=== PATIENT | female | born 1965 | race Caucasian/White ===

== ENCOUNTER 2016-12-18 08:08 | Emergency (ER) | payer MEDICARE ==
[2016-03-10 10:07] VITALS: BMI 18.6
[~2016-12-18 08:08] MED LIST: ADDERALL 10 MG10 MG PO; AMOXICILLIN500 M1 PO; ASPIRIN81 MG PO; BACTRIM 400-801 TAB PO; BAYER CHEWABLE81 MG PO; BETADINE TP; BIAXIN 500 MG500 MG PO; BUSPAR 15 MG TA15 MG PO; CALMOSEPTINE OI71 GM TOPICAL; CARAFATE1 G PO; CATAPRES0.1 MG PO; CATAPRES0.2 MG PO; COLACE100 MG PO; DURAGESIC1 PATCH .1 TRANSDERM; ELIQUIS5 MG PO; FAMOTIDINE10 MG PO; FLORAJEN3 CAPS460 MG PO; HYDROCODONE-APA1 TAB PO; IBUPROFEN400 MG PO; K-DUR20 MEQ PO; LASIX40 MG PO; LATUDA40 MG PO; LEXAPRO10 MG PO; LIPITOR10 MG PO; LISINOPRIL-HCTZ1 T11 PO; LISINOPRIL-HCTZ1 TA2 PO; LOVENOX40 MG/0.4 SC; MIRALAX17 GM PO; MULTIPLE VITAMI1 TA1 PO; NEURONTIN 300300 MG PO; NORVASC10 MG PO; PERCOCET 10/3251 TA1 PO; PHENERGAN25 M1 PO; PLAVIX75 MG PO; PRAVACHOL40 MG PO; PROTONIX40 MG PO; PROZAC10 MG PO; RIFADIN300 MG PO; SANTYL30 GM TOPICAL; THERAGRAN M [BK1 TAB PO; VANCOMYCIN 1 GM/1 G1 IV; VITAMIN C250 MG PO; XANAX0.25 MG PO; XANAX1 MG PO; XANAX2 MG PO; [UNRECOGNIZED DRUG - OTHER] IV
[2016-12-18 08:42] LABS: BASOPHILS 0.2 % (0.0-2.0); EOSINOPHILS 0.6 % (0-7); HEMATOCRIT 43.8 % (36.0-48.0); HEMOGLOBIN 14.4 g/dL (12-16); IMMATURE GRANULOCYTES 0.1 % (0-5); LYMPHOCYTES 12.4 % (15-50); MCH 30.8 pg (26.0-34.0); MCHC 32.9 g/dL (31.0-37.0); MCV 93.6 fL (80.0-100.0); MEAN PLATELET VOLUME 10.4 fL (7.4-10.4); MONOCYTES 4.6 % (2-11); NEUTROPHILS 82.1 % (40-80); PLATELET COUNT 243 10x3/uL (130-400); RBC 4.68 10x6/uL (4.00-5.40); RDW 14.6 % (11.5-14.5); WBC 8.3 10x3/uL (4.8-10.8)
[2016-12-18 08:51] LABS: APTT 23.2 SECONDS (22.8-39.4); INR 0.95 (0.85-1.17); PROTIME 12.6 SECONDS (11.6-15.0)
[2016-12-18 08:57] LABS: ALBUMIN 3.5 g/dL (3.4-5.0); ANION GAP 15.1 mmol/L (8-16); BILIRUBIN - TOTAL 0.19 mg/dL (0.2-1.3); CALCIUM 8.7 mg/dL (8.5-10.1); CARBON DIOXIDE 23.5 mmol/L (21.0-32.0); CREATININE - SERUM 0.9 mg/dL (0.6-1.3); POTASSIUM - SERUM 3.6 mmol/L (3.5-5.1); PROTEIN - SERUM 7.5 g/dL (6.4-8.2)
== END 2016-12-18 10:44 | disposition home or self-care (01) ==
LOC: D.ER 08:08
PROVIDERS: Emergency Medicine
DX: R04.0 Epistaxis (principal); I10 Essential (primary) hypertension; Z86.73 Personal history of transient ischemic attack (TIA), and cerebral infarction without residual deficits; I73.9 Peripheral vascular disease, unspecified

== ENCOUNTER 2017-08-29 10:21 | Observation (INO) | payer MEDICARE ==
[~2017-08-29] VITALS: Ht 165.1 cm; Wt 68.5 kg
--- NOTE | ~2017-08-29 | EC ---
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 cm LV Septum (systole) 1.9 cm Left Atria (s.<4.0cm> 4.2 cm LVPW d(<1.2cm) 1.4 cm RV (d.<2.3cm) 2.9 cm LVPW (sytole) 2.1 cm LV diastole(<5.6CM) 5.1 cm MV E-F(>70mm/sec) cm LV systole 2.7 cm LVOT Diameter 2.1 cm MV exc.(>10mm) 1.8 cm Est.ejection fraction (50-75%) % Pericardial Effusion N DOPPLER: LVIT cm/sec A 94.0 cm/sec E 70.0 cm/sec LA cm/sec RVSP 31 mmHg LVOT 96 cm/sec AOP1/2T m/s Asc. Ao 130 cm/sec RVOT 77 cm/sec RA cm/sec PA 107 cm/sec AV Gradient Peak 6.77 mmHg AV Mean 3.52 mmHg AV Area 2.4 cm MV Gradient Peak 5.52 mmHg MV Mean 2.13 mmHg MV Area cm COMMENTS: Hanger: Marcella BARAJAS Edge [place]: 4 Dr. Wilder TAPE# PACS DATE OF SERVICE: 08/29/2017 Transthoracic Echocardiogram FINDINGS: 1. The patient has mild concentric left ventricular hypertrophy. The ejection fraction is 60% to 65%. Inflow characteristics consistent with diastolic dysfunction. There is no regional wall motion abnormalities appreciated. 2. Left atrium is mildly dilated, but normal function. 3. Aortic valve is structurally normal, functionally normal. ECHOCARDIOGRAM REPORT [id number] PATRICIA VARELA 4. Mitral valve has mild to trace mitral regurgitation, otherwise structurally normal. 5. The tricuspid valve has mild tricuspid regurgitation with normal right ventricular systolic pressures. 6. The pulmonic valve is functionally normal. 7. The right atrium is normal size, normal function. 8. The right ventricle is normal size, normal function. CONCLUSION: This is a normal echocardiogram without any evidence of regional wall motion abnormalities. TRANSINT:[id number] Voice Confirmation ID: [id number] DOCUMENT ID: [id number] ANAND WILDER MD at 1118 CC: [id number] DICTATION DATE: 08/29/17 1534 VEGETABLE INSPECTOR: 08/29/17 1724 DIS IN 08/30/17 [facility] [address] [place] [address]
[2017-08-29 10:59] LABS: EOSINOPHILS 1.8 % (0-7); IMMATURE GRANULOCYTES 0.2 % (0-5); LYMPHOCYTES 33.1 % (15-50); MCH 27.9 pg (26.0-34.0); MCHC 31.7 g/dL (31.0-37.0); MEAN PLATELET VOLUME 10.5 fL (7.4-10.4); MONOCYTES 11.8 % (2-11); NEUTROPHILS 52.1 % (40-80); PLATELET COUNT 247 10x3/uL (130-400); RBC 4.66 10x6/uL (4.00-5.40); RDW 17.4 % (11.5-14.5); WBC 4.9 10x3/uL (4.8-10.8)
[2017-08-29 11:19] LABS: ALBUMIN 3.5 g/dL (3.4-5.0); ALKALINE PHOSPHATASE 146 U/L (46-116); ALT (SGPT) 15 U/L (10-68); CALC OSMOLALITY 276 mosm/kg (275-300); CALCIUM 9.2 mg/dL (8.5-10.1); CARBON DIOXIDE 26.5 mmol/L (21.0-32.0); CHLORIDE - SERUM 104 mmol/L (98-107); CREATININE - SERUM 0.9 mg/dL (0.6-1.3); GLUCOSE 110 mg/dL (74-106); POTASSIUM - SERUM 4.5 mmol/L (3.5-5.1); PROTEIN - SERUM 7.5 g/dL (6.4-8.2); SODIUM 139 mmol/L (136-145); UREA NITROGEN 8 mg/dL (7-18); eGFR NON AFRICAN AMERICAN 70 mL/min (90-120)
[2017-08-29 11:29] LABS: BILIRUBIN - TOTAL 0.09 mg/dL (0.2-1.3)
[2017-08-29 11:30] LABS: CHOL - HDL RATIO 4.1 ratio (2.3-4.1); CHOLESTEROL, TOTAL 218 mg/dL (0-200); CKMB 22.1 U/L (0.0-3.6); CREATINE KINASE 167 UL (21-215); HDL CHOLESTEROL 53 mg/dL (32-96); LDL CHOLESTEROL 141 mg/dL (0-100); LDL-HDL RATIO 2.7 ratio (1.5-3.5); TRIGLYCERIDE 123 mg/dL (30-200)
[2017-08-29 11:32] LABS: TROPONIN-I < 0.017 ng/mL (0.000-0.060)
[2017-08-29] MEDS ORDERED: NEURONTIN600 MG PO (14:40)
[2017-08-29] MEDS ORDERED: AMBIEN5 MG PO (14:41)
[2017-08-29] MEDS ORDERED: CYCLOBENZAPRINE10 MG PO ×2 (14:42→14:43)
[2017-08-29 14:47] VITALS: BP 167/120; BMI 25.0
[2017-08-29 16:11] VITALS: BP 131/87
[2017-08-29 16:40] LABS: CKMB 18.2 U/L (0.0-3.6); CREATINE KINASE 158 UL (21-215)
[2017-08-29 16:52] LABS: TROPONIN-I < 0.017 ng/mL (0.000-0.060)
[2017-08-29 21:08] VITALS: BP 85/43
[2017-08-29 22:02] LABS: APPEARANCE CLEAR (CLEAR); BILIRUBIN NEGATIVE (NEGATIVE); COLOR YELLOW (YELLOW); GLUCOSE NEGATIVE (NEGATIVE); KETONE NEGATIVE (NEGATIVE); NITRITE NEGATIVE (NEGATIVE); PROTEIN NEGATIVE (NEGATIVE); UROBILINOGEN NORMAL (NORMAL)
[2017-08-29 22:10] LABS: UDS - AMPHET POSITIVE QUAL (NEGATIVE); UDS - BARB NEGATIVE QUAL (NEGATIVE); UDS - BENZO POSITIVE QUAL (NEGATIVE); UDS - COCAINE NEGATIVE QUAL (NEGATIVE); UDS - OPIATE POSITIVE QUAL (NEGATIVE); UDS - PCP NEGATIVE QUAL (NEGATIVE); UDS - THC NEGATIVE QUAL (NEGATIVE)
[2017-08-29 22:44] LABS: CREATINE KINASE 111 UL (21-215)
[2017-08-29 22:47] LABS: TROPONIN-I < 0.017 ng/mL (0.000-0.060)
[2017-08-30 00:48] VITALS: BP 99/51
[2017-08-30 04:21] VITALS: BP 93/46
[2017-08-30 05:36] LABS: BASOPHILS 0.9 % (0-2); EOSINOPHILS 2.2 % (0-7); HEMATOCRIT 39.8 % (36.0-48.0); HEMOGLOBIN 12.2 g/dL (12-16); LYMPHOCYTES 37.7 % (15-50); MCH 27.7 pg (26.0-34.0); MCHC 30.7 g/dL (31.0-37.0); MEAN PLATELET VOLUME 10.4 fL (7.4-10.4); MONOCYTES 10.9 % (2-11); NEUTROPHILS 48.3 % (40-80); PLATELET COUNT 244 10x3/uL (130-400); RBC 4.41 10x6/uL (4.00-5.40); RDW 17.6 % (11.5-14.5); WBC 4.5 10x3/uL (4.8-10.8)
[2017-08-30 05:51] LABS: MCV 90.2 fL (80.0-100.0)
[2017-08-30 06:07] LABS: ALKALINE PHOSPHATASE 123 U/L (46-116); ALT (SGPT) 14 U/L (10-68); BILIRUBIN - TOTAL 0.13 mg/dL (0.2-1.3); CALC OSMOLALITY 281 mosm/kg (275-300); CALCIUM 8.6 mg/dL (8.5-10.1); CARBON DIOXIDE 27.7 mmol/L (21.0-32.0); CHLORIDE - SERUM 107 mmol/L (98-107); CREATININE - SERUM 0.8 mg/dL (0.6-1.3); GLUCOSE 119 mg/dL (74-106); PROTEIN - SERUM 6.6 g/dL (6.4-8.2); SODIUM 142 mmol/L (136-145); UREA NITROGEN 8 mg/dL (7-18); eGFR NON AFRICAN AMERICAN 80 mL/min (90-120)
[2017-08-30 06:16] LABS: POTASSIUM - SERUM 3.7 mmol/L (3.5-5.1)
[2017-08-30 07:57] VITALS: BP 121/64
[2017-08-30 10:54] VITALS: Ht 165.1 cm; Wt 68.5 kg
[2017-08-30 11:45] VITALS: BP 128/78
[2017-08-30] MEDS ORDERED: CATAPRES0.1 MG PO (13:31)
[2017-08-30] MEDS ORDERED: NORMODYNE / TR200 MG PO (13:32)
[2017-08-30] MEDS ORDERED: NITROQUICK0.4 MG SL (13:34)
== END 2017-08-30 14:08 | disposition home or self-care (01) ==
LOC: D.ER 10:21 → D.M2 12:30 → OBSVTIME 14:08 → D.M2 08-30 14:08
PROVIDERS: Emergency Medicine; Family Medicine
DX: R07.9 Chest pain, unspecified (principal); I25.119 Atherosclerotic heart disease of native coronary artery with unspecified angina pectoris; J44.9 Chronic obstructive pulmonary disease, unspecified; I74.09 Other arterial embolism and thrombosis of abdominal aorta; Z86.73 Personal history of transient ischemic attack (TIA), and cerebral infarction without residual deficits; D64.9 Anemia, unspecified; K21.9 Gastro-esophageal reflux disease without esophagitis; F31.9 Bipolar disorder, unspecified; D75.1 Secondary polycythemia; F10.20 Alcohol dependence, uncomplicated; G89.29 Other chronic pain; I10 Essential (primary) hypertension; E78.5 Hyperlipidemia, unspecified; K59.09 Other constipation; Z87.891 Personal history of nicotine dependence; I70.212 Atherosclerosis of native arteries of extremities with intermittent claudication, left leg

== ENCOUNTER 2018-01-11 08:56 | Emergency (ER) | payer MEDICARE ==
[2017-08-30 10:54] VITALS: BMI 25.1
[~2018-01-11 08:56] MED LIST changes: +AMBIEN5 MG PO; +CYCLOBENZAPRINE10 MG PO; +NEURONTIN600 MG PO; +NITROQUICK0.4 MG SL; +NORMODYNE / TR200 MG PO
[2018-01-11 11:51] LABS: UDS - AMPHET NEGATIVE QUAL (NEGATIVE); UDS - BARB NEGATIVE QUAL (NEGATIVE); UDS - BENZO NEGATIVE QUAL (NEGATIVE); UDS - COCAINE NEGATIVE QUAL (NEGATIVE); UDS - OPIATE NEGATIVE QUAL (NEGATIVE); UDS - PCP NEGATIVE QUAL (NEGATIVE); UDS - THC NEGATIVE QUAL (NEGATIVE)
[2018-01-11 13:14] LABS: APPEARANCE CLEAR (CLEAR); BILIRUBIN NEGATIVE (NEGATIVE); COLOR YELLOW (YELLOW); GLUCOSE NEGATIVE (NEGATIVE); KETONE NEGATIVE (NEGATIVE); NITRITE NEGATIVE (NEGATIVE); PROTEIN NEGATIVE (NEGATIVE); UROBILINOGEN NORMAL (NORMAL)
[2018-01-11 13:33] LABS: HEMATOCRIT 39.9 % (36.0-48.0); HEMOGLOBIN 13.1 g/dL (12-16); MCH 28.6 pg (26.0-34.0); MCHC 32.8 g/dL (31.0-37.0); MCV 87.1 fL (80.0-100.0); PLATELET COUNT 258 10x3/uL (130-400); RBC 4.58 10x6/uL (4.00-5.40); RDW 17.5 % (11.5-14.5); WBC 2.9 10x3/uL (4.8-10.8)
[2018-01-11 13:51] LABS: ALBUMIN 3.3 g/dL (3.4-5.0); ALKALINE PHOSPHATASE 127 U/L (46-116); ALT (SGPT) 16 U/L (10-68); CALC OSMOLALITY 271 mosm/kg (275-300); CALCIUM 8.9 mg/dL (8.5-10.1); CARBON DIOXIDE 28.1 mmol/L (21.0-32.0); CHLORIDE - SERUM 103 mmol/L (98-107); CREATININE - SERUM 0.8 mg/dL (0.6-1.3); GLUCOSE 97 mg/dL (74-106); POTASSIUM - SERUM 3.7 mmol/L (3.5-5.1); PROTEIN - SERUM 7.2 g/dL (6.4-8.2); SODIUM 137 mmol/L (136-145); UREA NITROGEN 6 mg/dL (7-18); eGFR NON AFRICAN AMERICAN 80 mL/min (90-120)
[2018-01-11 14:20] LABS: EOSINOPHILS 3 % (0-7); LYMPHOCYTES 46 % (15-50); MONOCYTES 10 % (2-11); NEUTROPHILS 41 % (40-80); PLATELET ESTIMATE NORMAL
[2018-01-11 14:59] LABS: CREATINE KINASE 125 UL (21-215)
[2018-01-11 15:36] LABS: TROPONIN-I < 0.017 ng/mL (0.000-0.060)
== END 2018-01-11 16:38 | disposition home or self-care (01) ==
LOC: D.ER 08:56
PROVIDERS: Emergency Medicine; Nurse Practitioner Family
DX: R53.1 Weakness (principal); R10.9 Unspecified abdominal pain; F17.200 Nicotine dependence, unspecified, uncomplicated

== ENCOUNTER → 2018-01-25 14:53 | Outpatient (CLI) | payer MEDICARE ==
[2017-08-30 10:54] VITALS: BMI 25.1
== END | disposition home or self-care (01) ==
LOC: D.US 14:53
DX: M79.605 Pain in left leg (principal); M79.604 Pain in right leg; I73.9 Peripheral vascular disease, unspecified

== ENCOUNTER 2018-03-13 05:52 | Outpatient (CLI) | payer MEDICARE ==
[~2018-03-13] VITALS: Ht 165.1 cm; Wt 66.4 kg
--- NOTE | ~2018-03-13 | HEMODYNAMI ---
PATIENT:PATRICIA VARELA MEDICAL RECORD: [id number] : 67 [id number] ADMISSION DATE: 03/13/18 Generatedon:03/13/201810:31 Patient name: PATRICIA VARELA Patient #: [id number] SSN: : 1965 Date of study: 03/13/2018 Page: Of Hemodynamic Procedure Report Patient Data Patient Demographics Procedure consent was obtained First Name: PATRICIA Gender: Female Last Name: NICHOLE : 1965 [facility] Initial: JUS Age: 52 year(s) Patient #: [id number] Race: Unknown Additional ID: [id number] Contact details [address]: [address] [place] [address] State: [place] City: [place] Zip code: [address] Past Medical History Allergies: No known allergies Admission Admission Data Admission Date: 03/13/2018 Admission Time: 5:52 Height (in.): 65 BSA: 1.73 (m2) Height (cm.): 165.1 BMI: 24.3 (kg/m2) Weight (lbs.): 146 Weight (kg.): 66.22 Procedure Procedure Types Cath Procedure Peripheral Cath Diagnostic Procedure Cath Peripheral Abd/Extremity Renal Renal Unilateral Procedure Description Procedure Date Procedure Date: 03/13/2018 Procedure Start Time: 8:28 Procedure Staff Name Function Chas Roberts MD Performing Physician Guillermina Santoyo RT Boom Supervisor Asia Quinn RN Nurse Paola Flores RN Nurse Yuri Finley RT Scrub Procedure Data Cath Procedure Fluoroscopy Diagnostic fluoroscopy Total fluoroscopy Time: time: 14.2 min 14.2 min Diagnostic fluoroscopy Total fluoroscopy dose: dose: 2936 mGy 2936 mGy Contrast Material Contrast Material Type Amount (ml) Isovue 300 180 Entry Location Entry Primary Successful Side Size Upsize Upsize Entry Closure Succes sful Closure Location (Fr) 1 (Fr) 2 (Fr) Remarks Device Remarks Femoral Right 5 Fr artery Femoral artery Diagnostic catheters Device Type Used For End Catheter Placement Merit ULTRA BOLUS FLUSH 5Fr 65CM catheter ([id number]) Angiodynamics SOS OMNI 2 NON B 5FR 65CM catheter ([id number]) Procedure Medications Medication Administration Route Dosage Oxygen etCO2 Nasal cannula 4 l/min Lidocaine 1% added to field 20 Heparin Flush Bag added to field 3 bags (1000units/500ml NS) Versed I.V. 1 mg Fentanyl I.V. 50 mcg Versed I.V. 1 mg Fentanyl I.V. 50 mcg Fentanyl I.V. 50 mcg Versed I.V. 1 mg Fentanyl I.V. 50 mcg Versed I.V. 1 mg Benadryl I.V. 25 mg Benadryl I.V. 25 mg Fentanyl I.V. 50 mcg Fentanyl I.V. 50 mcg Versed I.V. 2 mg Heparin Bolus I.V. 5000 units Nitroglycerin IC/IA 200 mcg Zofran I.V. 4 mg Hemodynamics Rest BSA: 1.73 (m2) O2 Consumption: Estimated: 166.65 (ml/min) O2 Consumption indexed : Estimated:96.33 (ml/min/m) Heart Rate: 67 (bpm) Pressure Samples Time Site Value (mmHg) Purpose Heart Use Rate(bpm) 9:19 LREN 95/46(67) Snapshot 67 Snapshots Pre Cath Intra NCS Post Cath Vital Signs Time Heart Resp SPO2 etCO2 NIBP (mmHg) Rhythm Pain Sedation Rate (ipm) (%) (mmHg) Status Level (bpm) 8:00:34 60 13 98 0 119/74(87) NSR 0 (11) 10(A) , No pain 8:04:27 60 21 99 0 118/75(91) NSR 0 (11) 10(A) , No pain 8:08:29 62 9 98 0 116/70(89) NSR 0 (11) 10(A) , No pain 8:12:24 60 24 96 0 107/68(86) NSR 0 (11) 10(A) , No pain 8:16:22 61 21 96 0 111/65(87) NSR 0 (11) 10(A) , No pain 8:20:23 52 52 100 30.2 106/64(77) SB 0 (11) 9(A) , No pain 8:24:21 58 33 99 38.5 102/65(80) SB 0 (11) 9(A) , No pain 8:28:17 61 18 98 0 108/66(83) NSR 0 (11) 8(A) , No pain 8:32:21 64 33 97 0 102/57(79) NSR 0 (11) 8(A) , No pain 8:36:22 65 31 98 31.7 98/57(83) NSR 0 (11) 8(A) , No pain 8:40:20 66 12 99 30.2 100/62(75) NSR 0 (11) 8(A) , No pain 8:44:19 67 0 96 14.3 97/57(75) NSR 0 (11) 8(A) , No pain 8:48:13 65 9 95 24.1 103/66(81) NSR 0 (11) 8(A) , No pain 8:52:11 64 15 98 0.7 102/61(84) NSR 0 (11) 8(A) , No pain 8:56:12 67 19 100 26.4 99/58(71) NSR 0 (11) 8(A) , No pain 9:00:14 67 9 99 0 93/53(71) NSR 0 (11) 8(A) , No pain 9:04:11 64 7 97 19.6 94/59(74) NSR 0 (11) 8(A) , No pain 9:08:01 68 13 99 33.2 105/77(92) NSR 0 (11) 8(A) , No pain 9:12:01 65 48 99 0 91/59(76) NSR 0 (11) 8(A) , No pain 9:15:52 66 22 100 0 97/65(78) NSR 0 (11) 8(A) , No pain 9:19:41 64 23 100 41.4 106/72(86) NSR 0 (11) 8(A) , No pain 9:23:55 68 10 98 37.7 127/83(105) NSR 0 (11) 8(A) , No pain 9:27:47 67 21 100 0 136/86(112) NSR 0 (11) 8(A) , No pain 9:31:40 71 9 90 0 131/85(101) NSR 0 (11) 8(A) , No pain 9:35:34 72 9 92 0 137/78(112) NSR 0 (11) 8(A) , No pain 9:39:27 74 7 95 15.8 140/88(110) NSR 0 (11) 8(A) , No pain 9:43:23 73 9 98 9 146/82(119) NSR 0 (11) 8(A) , No pain 9:47:16 69 14 99 36.2 134/82(109) NSR 0 (11) 8(A) , No pain 9:51:10 65 7 99 37.7 121/81(100) NSR 0 (11) 8(A) , No pain 9:55:03 66 15 100 26.4 127/74(104) NSR 0 (11) 8(A) , No pain 9:58:57 62 16 96 27.9 122/75(96) NSR 0 (11) 8(A) , No pain 10:02:48 67 8 99 31.7 123/79(101) NSR 0 (11) 8(A) , No pain 10:07:08 61 10 100 37.7 121/71(92) NSR 0 (11) 8(A) , No pain 10:11:22 60 5 100 43.7 120/65(94) NSR 0 (11) 8(A) , No pain 10:15:16 61 8 98 17.3 118/77(93) NSR 0 (11) 8(A) , No pain 10:19:07 65 11 100 36.9 116/78(91) NSR 0 (11) 8(A) , No pain 10:22:59 61 14 98 10.5 124/78(100) NSR 0 (11) 8(A) , No pain 10:27:45 62 11 43.7 115/68(94) NSR 0 (11) 8(A) , No pain Medications Time Medication Route Dose Verified Delivered Reason Notes Effe ctiveness by by 8:19:21 Oxygen etCO2 4l/min Chas Srinivasan Nasal Mark Roberts RN protocol cannula 8:26:53 Lidocaine 1% added 20ml Chas Srinivasan to vial Armando Roberts MD protocol field 8:27:10 Heparin Flush added 3 bags Chas Chas Per Bag to Armando Roberts MD protocol (1000units/500ml field NS) 8:27:22 Versed I.V. 1 mg Chas Paola for Full y awake @ Mark Roberts RN sedation 8:31:30 8:27:33 Fentanyl I.V. 50 mcg Chas Paola for Full y awake @ Mark Roberts RN sedation 8:31:43 8:30:05 Versed I.V. 1 mg Chas Paola for Dozi ng Mark Roberts RN sedation intermittently MD @ 8:52:29 8:31:57 Fentanyl I.V. 50 mcg Chas Paola for Dozi ng Mark Roberts RN sedation intermittently MD @ 8:52:26 8:37:37 Fentanyl I.V. 50 mcg Chas Paola for Dozi ng Mark Roberts RN sedation intermittently MD @ 8:43:48 8:41:46 Versed I.V. 1 mg Chas Paola for Dozi ng Mark Roberts RN sedation intermittently MD @ 8:44:55 8:45:03 Fentanyl I.V. 50 mcg Chas Paola for Most ly Mark Roberts RN sedation sleeping @ 8:52:21 8:57:02 Versed I.V. 1 mg Chsa Paola for Dozi ng Mark Roberts RN sedation intermittently MD @ 9:12:30 9:03:56 Benadryl I.V. 25 mg Chas Paola for Mark Roberts RN sedation 9:13:06 Benadryl I.V. 25 mg Chas Paola for Mark Roberts RN sedation 9:15:10 Fentanyl I.V. 50 mcg Chas Paola for Mark Roberts RN sedation 9:25:15 Fentanyl I.V. 50 mcg Chas Paola for Most ly Mark Roberts RN sedation sleeping @ 9:42:48 9:27:19 Versed I.V. 2 mg Chas Paola for Most ly Mark Roberts RN sedation sleeping @ 9:42:51 9:39:44 Heparin Bolus I.V. 5000 Chas Paola Per units Mark Roberts RN protocol 9:47:46 Nitroglycerin 200 Chas Espinozaine Per IC/IA mcg Mark Roberts RN protocol 10:27:17 Zofran I.V. 4 mg Chas Paola for Mark Roberts RN nausea MD Procedure Log Time Note 7:29:15 Patient Height : 65 inches 7:29:20 Patient Weight : 146 lbs 7:29:54 Use device set IR Diagnostic 7:46:56 DOC .035 wire (G04142) opened to sterile field. 7:46:57 TUBING Contrast Injection High Pressure (WVC689A) opened to sterile field. 7:46:59 Micropuncture VSI 4FR kit opened to sterile field. 7:47:00 SHEATH 5FR [place] (DJZ802) opened to sterile field. 7:47:01 Tegaderm 4 x 4 (1626W) opened to sterile field. 7:47:02 Sterile Angiographic Pack opened to sterile field. 7:47:03 Bag Decanter (2002S) opened to sterile field. 7:47:04 ACIST Manifold (98003) opened to sterile field. 7:47:05 ACIST Hand Control (87397) opened to sterile field. 7:47:06 ACIST Syringe (11819) opened to sterile field. 7:48:05 Time tracking: Regular hours (M-F 7:00 - 5:00) 7:48:13 - 7:48:33 Plan of Care:Hemodynamics will remain stable., Cardiac rhythm will remain stable., Comfort level will be maintained., Respiratory function will remain adequate., Patient/ family verbilizes understanding of procedure., Procedure tolerated without complication., Recovers from procedure without complications.. 7:48:41 Patient received from Outpatients to IR Alert and oriented. Tansferred to table in Supine position. 7:48:48 Signed procedure consent form obtained from patient. 7:48:54 H&P Date Dictated: 03/13/2018 Within 30 days and on chart.. 7:48:59 - 7:49:06 Pre-procedure instructions explained to patient. 7:49:07 Pre-op teaching completed and patient verbalized understanding. 7:49:17 Family unavailable. 7:49:20 Patient NPO since Midnight. 7:49:39 Patient allergic to No known allergies 7:50:05 Is patient on blood thinner?Yes 7:50:11 ACC The patient was administered the following blood thiners within the last 24 hours: ACCPlavix 7:50:16 Patient diabetic? No. 7:50:19 - 7:50:22 ----Pre-sedation anethsthesia assessment.---- 7:50:33 Previous problem with sedation/anesthesia? No ? 7:50:36 Snore? Yes 7:50:39 Sleep apnea? No 7:50:42 Deviated septum? No 7:50:44 Opens mouth fully? Yes 7:50:46 Sticks out tongue? Yes 7:50:56 Airway obstruction? No but has cad 7:51:02 Dentures? No ? 7:51:06 - 7:51:11 Pre procedure: right dorsailis pedis pulse Doppler 7:51:17 Pre procedure: right posterior tibial pulse Doppler 7:51:35 IV patent on arrival in left forearm with D5/.45%NaCl at KVO. 7:51:42 Right groin area was prepped with chlora-prep and draped in sterile fashion 7:51:44 - 7:59:43 Vital chart was started 8:04:32 Cook ALEIDA 1 6FR. Guide sheath opened to sterile field. 8:05:10 GLIDE CATHETER 5FR COBRA 65cm (CG502) opened to sterile field. 8:16:56 ECG and BP/O2 sat monitors applied to patient. 8:16:57 Baseline sample Acquired. 8:17:02 Full Disclosure recording started 8:17:06 - 8:19:21 Oxygen 4l/min etCO2 Nasal cannula was administered by Paola Flores RN; Per protocol; 8:21:54 GLIDE WIRE .035 180CM STRAIGHT (OX8050) opened to sterile field. 8:22:35 TORQUE DEVICE PLASTIC .038 ( TD01) opened to sterile field. 8:26:53 Lidocaine 1% 20ml vial added to field was administered by Chas Roberts MD; Per protocol; 8:26:55 Physician arrived 8:27:10 Heparin Flush Bag (1000units/500ml NS) 3 bags added to field was administered by Chas Roberts MD; Per protocol; 8:27:22 Versed 1 mg I.V. was administered by Paola Flores RN; for sedation; 8:27:31 --------ALL STOP TIME OUT------ 8:27:33 Fentanyl 50 mcg I.V. was administered by Paola Flores RN; for sedation; 8:27:37 Final Timeout: patient, procedure, and site verified with staff and physician. All members of the team are in agreement. 8:28:24 Procedure started. 8:28:36 Local anesthetic to right femoral artery with Lidocaine 1% by Chas Roberts MD.INITIAL ACCESS ONLY 8:28:49 Arterial access obtained using ultrasound guidance. 8:30:05 Versed 1 mg I.V. was administered by Paola Flores RN; for sedation; 8:31:30 Effectiveness of Versed delivered @ 8:27:22 is: Fully awake 8:31:43 Effectiveness of Fentanyl delivered @ 8:27:33 is: Fully awake 8:31:57 Fentanyl 50 mcg I.V. was administered by Paola Flores RN; for sedation; 8:33:07 A 5 Fr sheath was inserted into the Right Femoral artery 8:35:49 GLIDE CATHETER 5FR ANGLED 65cm (CG507) opened to sterile field. 8:37:21 Angiography was performed. 8:37:37 Fentanyl 50 mcg I.V. was administered by Paola Flores RN; for sedation; 8:41:46 Versed 1 mg I.V. was administered by Paola Flores RN; for sedation; 8:43:48 Effectiveness of Fentanyl delivered @ 8:37:37 is: Dozing intermittently 8:43:56 Left groin area was prepped with chlora-prep and draped in sterile fashion 8:44:20 Local anesthetic to left femerol artery with Lidocaine 1% by Chas Roberts MD.ADDITIONAL ACCESS 8:44:55 Effectiveness of Versed delivered @ 8:41:46 is: Dozing intermittently 8:45:03 Fentanyl 50 mcg I.V. was administered by Paola Flores RN; for sedation; 8:47:44 SHEATH 5FR [place] (ICZ632) opened to sterile field. 8:52:21 Effectiveness of Fentanyl delivered @ 8:45:03 is: Mostly sleeping 8:52:26 Effectiveness of Fentanyl delivered @ 8:31:57 is: Dozing intermittently 8:52:29 Effectiveness of Versed delivered @ 8:30:05 is: Dozing intermittently 8:52:36 A [employer] ULTRA BOLUS FLUSH 5Fr 65CM catheter ([id number]) was advanced over the wire and used for . 8:57:02 Versed 1 mg I.V. was administered by Paola Flores RN; for sedation; 8:58:39 A Angiodynamics SOS OMNI 2 NON B 5FR 65CM catheter ([id number]) was advanced over the wire and used for . 9:03:56 Benadryl 25 mg I.V. was administered by Paola Flores RN; for sedation; 9:04:49 PATIENT WAKING UP FREQUENTLY AND ANXIOUS BENADRYL TO HELP ALONG WITH SEDATION MEDS TO HELP RELAX PATIENT 9:12:30 Effectiveness of Versed delivered @ 8:57:02 is: Dozing intermittently 9:13:06 Benadryl 25 mg I.V. was administered by Paola Flores RN; for sedation; 9:14:41 Magiure 180 wire (E39582) opened to sterile field. 9:15:10 Fentanyl 50 mcg I.V. was administered by Paola Flores RN; for sedation; 9:17:18 Zero performed for pressure channel P1 9:17:50 Zero performed for pressure channel P1 9:18:57 Zero performed for pressure channel P1 9:24:47 Zero performed for pressure channel P1 9:25:15 Fentanyl 50 mcg I.V. was administered by Paola Flores RN; for sedation; 9:27:19 Versed 2 mg I.V. was administered by Paola Flores RN; for sedation; 9:39:29 NITINOL .018 2cm 300cm wire ([id number]) opened to sterile field. 9:39:44 Heparin Bolus 5000 units I.V. was administered by Paola Flores RN; Per protocol; 9:42:48 Effectiveness of Fentanyl delivered @ 9:25:15 is: Mostly sleeping 9:42:51 Effectiveness of Versed delivered @ 9:27:19 is: Mostly sleeping 9:47:46 Nitroglycerin IC/IA 200 mcg was administered by Paola Flores RN; Pe r protocol; 9:47:50 INFLATOR BasixTOUCH (RC9879) opened to sterile field. 9:51:48 Inflate balloon Inflation number: 1 A [place] Plus 4 x 2 x 130 Balloon ([id number]) was prepped and advanced across the Undefined1, then inflated 9:59:37 SHEATH 6FR [place] (JWH040) opened to sterile field. 10:01:57 A sheath was inserted into the Femoral artery 10:02:55 Procedure ended.(Physican Out) 10:03:05 Fluoroscopy time 14.20 minutes. 10:03:16 Flurop Dose total: 2936 10:03:16 Fluoroscopy dose: 2936 mGy 10:03:25 Contrast amount:Isovue 300 180ml. 10:03:34 Procedure and supply charges have been captured, reviewed, submitted an d are correct. 10:06:40 Report given to Outpatients. 10:27:17 Zofran 4 mg I.V. was administered by Paola Flores RN; for nausea; 10:29:24 Insertion/operative site no bleeding no hematoma. 10:29:45 Post-op/insertion site Right Femoral artery dressed using a 4 x 4 and Tegaderm. 10:29:50 Post right femoral artery:stable 10:29:55 Post procedure instruction explained to patient.Patient verbalizes understanding. 10:29:58 Post Procedure Pulses reassessed and unchanged 10:30:14 Patient transfered to Outpatients with Stretcher. 10:31:00 Vital chart was stopped Intervention Summary Intervention Notes Time ActionType Lesion and Equipment Used Action# Pressure Duration Attributes 9:51:48 Inflate Undefined1 [place] Plus 4 1 0 00:00 balloon x 2 x 130 Balloon ([id number]) Device Usage Item Name Manufacture Quantity Catalog Number Hospital Part Current M inimal Lot# / Charge Number Stock Stock Serial# Code DOC .035 wire [employer] 1 [id number] 5 ([id number]) TUBING [facility] 1 [id number] 945259 201597 613858 5 Contrast Injection High Pressure (YSJ502N) Micropuncture VSI VASCULAR 1 7266V 317439 787267 5 VSI 4FR kit SOLUTIONS SHEATH 5FR Terumo 2 KAM016 237582 011207 799885 4 0 [place] (URM184) Tegaderm 4 x 4 3M 1 1626W 017144 032472 993171 5 (1626W) Sterile Cardinal 1 [id number] 307967 737410 5 Angiographic Health Pack Bag Decanter Microtek 1 915932 93039 749109 5 () Medical Inc. ACIST Manifold Acist Medical 1 30142 274264 160100 503203 5 (14228) Systems Inc ACIST Hand Acist Medical 1 43049 773715 638171 920540 5 Control Systems Inc (16162) ACIST Syringe Acist Medical 1 94171 743520 636768 131641 2 0 (58440) Systems Inc Cook ALEIDA 1 Cook Medical 1 G68734 243068 023653 5 [id number] 6FR. Guide sheath GLIDE CATHETER Terumo 1 CG502 852774 393560 5 5FR COBRA 65cm (CG502) GLIDE WIRE Terumo 1 GB2459 530932 999372 5 .035 180CM STRAIGHT (TO6267) TORQUE DEVICE [place] 1 TD01 922743 173951 101537 5 PLASTIC .038 ( Scientific TD01) GLIDE CATHETER Terumo 1 CG507 093342 366209 5 5FR ANGLED 65cm (CG507) [employer] ULTRA [employer] 1 [id number] 171300 693956 5 BOLUS FLUSH 5Fr 65CM catheter ([id number]) Angiodynamics Angiodynamics 1 [id number] 002638 10437 438250 5 SOS OMNI 2 NON B 5FR 65CM catheter (67963443) Maguire 180 wire [employer] 1 H47037 405727 347250 3605319 5 8447576 (N61206) NITINOL .018 Medtronic 1 I944574 005476 290785 5 2cm 300cm wire (E611666) INFLATOR [employer] 1 KH8440 777959 597355 521408 5 BasixTOUCH (KU0508) [place] Plus 4 Medtronic 1 [id number] 716285 628849 505335 5 [id number] x 2 x 130 Balloon ([id number]) SHEATH 6FR Terumo 1 HPD168 636997 668726 286598 4 0 [place] (GCQ985) Signature Audit [place] Stage Time Signature Unsigned Intra-Procedure 03/13/2018 Yuri 10:30:54 AM [place] RT (R) (CV) [facility] [address] [facility] [place] [address]
[2018-03-13 06:13] LABS: BASOPHILS 0.9 % (0-2); EOSINOPHILS 1.9 % (0-7); HEMOGLOBIN 13.1 g/dL (12-16); LYMPHOCYTES 70.1 % (15-50); MCH 27.6 pg (26.0-34.0); MCV 86.3 fL (80.0-100.0); MEAN PLATELET VOLUME 10.1 fL (7.4-10.4); MONOCYTES 7.2 % (2-11); NEUTROPHILS 19.9 % (40-80); PLATELET COUNT 218 10x3/uL (130-400); RBC 4.75 10x6/uL (4.00-5.40); RDW 16.4 % (11.5-14.5); WBC 4.3 10x3/uL (4.8-10.8)
[2018-03-13 06:23] LABS: INR 0.98 (0.85-1.17); PROTIME 12.6 SECONDS (11.6-15.0)
[2018-03-13 06:32] LABS: CALC OSMOLALITY 272 mosm/kg (275-300); CARBON DIOXIDE 23.4 mmol/L (21.0-32.0); CHLORIDE - SERUM 103 mmol/L (98-107); CREATININE - SERUM 0.8 mg/dL (0.6-1.3); GLUCOSE 87 mg/dL (74-106); POTASSIUM - SERUM 3.8 mmol/L (3.5-5.1); SODIUM 138 mmol/L (136-145); UREA NITROGEN 8 mg/dL (7-18); eGFR NON AFRICAN AMERICAN 80 mL/min (90-120)
[2018-03-13 07:05] VITALS: Ht 165.1 cm; Wt 66.4 kg
[2018-03-13] MEDS ORDERED: LYRICA50 MG PO (07:15)
[2018-03-13] MEDS ORDERED: PHENERGAN25 M1 PO (07:17)
== END 2018-03-13 16:36 | disposition home or self-care (01) ==
LOC: D.SP 05:52 → D.RAD 08:00 → D.SP 16:36
PROVIDERS: General Practice
DX: I70.1 Atherosclerosis of renal artery (principal); I35.0 Nonrheumatic aortic (valve) stenosis; I77.3 Arterial fibromuscular dysplasia; Z01.812 Encounter for preprocedural laboratory examination

== ENCOUNTER → 2018-06-19 12:13 | Outpatient (CLI) | payer MEDICARE ==
[2018-03-13 07:05] VITALS: BMI 24.3
[~2018-06-19 12:13] MED LIST changes: +LYRICA50 MG PO
== END | disposition home or self-care (01) ==
LOC: D.CT 11:30
DX: R10.9 Unspecified abdominal pain (principal)

== ENCOUNTER → 2018-07-25 11:34 | Outpatient (CLI) | payer MEDICARE ==
[2018-03-13 07:05] VITALS: BMI 24.3
== END | disposition home or self-care (01) ==
LOC: D.CT 11:34
DX: M79.605 Pain in left leg (principal); M79.604 Pain in right leg

== ENCOUNTER 2018-08-07 05:57 | Outpatient (CLI) | payer MEDICARE ==
[~2018-08-07] VITALS: Ht 165.1 cm; Wt 64.5 kg
--- NOTE | ~2018-08-07 | HEMODYNAMI ---
PATIENT:PATRICIA VARELA MEDICAL RECORD: [id number] : 67 LOCATION:[facility] ADMISSION DATE: 08/07/18 Generatedon:08/07/201810:38 Patient name: PATRICIA VARELA Patient #: [id number] SSN: : 1965 Date of study: 08/07/2018 Page: Of Hemodynamic Procedure Report Patient Data Patient Demographics Procedure consent was obtained First Name: PATRICIA Gender: Female Last Name: NICHOLE : 1965 [facility] Initial: JUS Age: 53 year(s) Patient #: [id number] Race: Unknown Additional ID: [id number] Contact details [address]: [address] [place] [address] State: [place] City: [place] Zip code: [address] Past Medical History Allergies: No known allergies Admission Admission Data Admission Date: 08/07/2018 Admission Time: 5:57 Procedure Procedure Types Cath Procedure Peripheral Cath Diagnostic Procedure Abd/Extremity Extremities Procedure Description Procedure Date Procedure Date: 08/07/2018 Procedure Start Time: 8:40 Procedure Staff Name Function Chas Roberts MD Performing Physician Yuri Finley RT Monitor Ayla Quinn RN Nurse Procedure Data Cath Procedure Fluoroscopy Diagnostic fluoroscopy Total fluoroscopy Time: time: 16.4 min 16.4 min Diagnostic fluoroscopy Total fluoroscopy dose: dose: 1498 mGy 1498 mGy Contrast Material Contrast Material Type Amount (ml) Isovue 300 135 Entry Location Entry Primary Successful Side Size Upsize 1 Upsize Entry Closure Successful Closure Location (Fr) (Fr) 2 (Fr) Remarks Device Remarks Femoral Right 5 Fr 6 Fr Manual artery Mid-Length Compressio n Diagnostic catheters Device Type Used For End Catheter Placement Angiodynamics SOS OMNI 2 Renal NON B 5FR 65CM catheter arteriography with ([id number]) flush -selective Procedure Medications Medication Administration Route Dosage Heparin Flush Bag added to field 3 bags (1000units/500ml NS) Lidocaine 1% added to field 20 Versed I.V. 1 mg Fentanyl I.V. 50 mcg Versed I.V. 1 mg Fentanyl I.V. 50 mcg Heparin Bolus I.V. 5000 units Hemodynamics Rest Heart Rate: 61 (bpm) Snapshots Pre Cath Intra NCS Post Cath Vital Signs Time Heart Resp SPO2 etCO2 NIBP (mmHg) Rhythm Pain Sedation Rate (ipm) (%) (mmHg) Status Level (bpm) 8:10:12 62 37 92 0 114/83(94) NSR 0 (11) 10(A) , No pain 8:15:11 65 13 92 0 Measuring NSR 0 (11) 10(A) , No pain 8:15:42 67 25 96 0 119/65(76) NSR 0 (11) 10(A) , No pain 8:19:56 63 10 100 38.7 102/75(88) NSR 0 (11) 10(A) , No pain 8:24:55 62 37 0 Measuring NSR 0 (11) 10(A) , No pain 8:24:57 63 37 0 101/65(88) NSR 0 (11) 10(A) , No pain 8:29:03 65 15 36.4 109/71(89) NSR 0 (11) 10(A) , No pain 8:33:08 66 11 30.3 108/82(96) NSR 0 (11) 10(A) , No pain 8:37:14 70 11 32.6 110/73(92) NSR 0 (11) 10(A) , No pain 8:41:22 66 30 98 0 105/69(82) NSR 0 (11) 10(A) , No pain 8:45:28 65 23 97 30.3 106/70(87) NSR 0 (11) 8(A) , No pain 8:50:17 63 10 98 9.1 113/80(98) NSR 0 (11) 8(A) , No pain 8:54:24 63 10 98 0 122/71(98) NSR 0 (11) 8(A) , No pain 8:58:34 63 9 99 0.7 117/73(87) NSR 0 (11) 8(A) , No pain 9:02:40 62 9 99 0 108/78(100) NSR 0 (11) 8(A) , No pain 9:06:42 66 9 99 0 123/82(102) NSR 0 (11) 8(A) , No pain 9:10:54 62 10 99 0.7 110/70(88) NSR 0 (11) 8(A) , No pain 9:14:58 61 10 99 0.7 116/75(96) NSR 0 (11) 8(A) , No pain 9:19:08 62 10 99 8.3 119/69(89) NSR 0 (11) 8(A) , No pain 9:23:15 61 10 98 9.8 112/75(92) NSR 0 (11) 8(A) , No pain 9:27:21 61 10 99 9.1 107/71(86) NSR 0 (11) 8(A) , No pain 9:31:25 62 10 100 11.3 118/70(94) NSR 0 (11) 8(A) , No pain 9:35:29 64 10 100 13.6 135/83(117) NSR 0 (11) 8(A) , No pain 9:40:25 71 10 100 12.1 171/108(140) NSR 0 (11) 8(A) , No pain 9:44:50 75 11 100 0 177/115(147) NSR 0 (11) 8(A) , No pain 9:49:08 71 10 100 28.1 165/109(131) NSR 0 (11) 8(A) , No pain 9:53:22 72 11 100 28.8 150/99(127) NSR 0 (11) 8(A) , No pain 9:57:36 67 10 100 22.8 136/87(118) NSR 0 (11) 8(A) , No pain 10:01:46 65 7 100 0 132/87(108) NSR 0 (11) 8(A) , No pain 10:05:58 67 10 100 22 138/82(118) NSR 0 (11) 8(A) , No pain 10:10:10 65 10 100 28.1 137/88(106) NSR 0 (11) 8(A) , No pain 10:14:21 63 9 100 24.3 135/84(105) NSR 0 (11) 8(A) , No pain 10:18:31 62 10 100 28.8 130/86(118) NSR 0 (11) 8(A) , No pain 10:22:39 63 8 100 27.3 140/85(102) NSR 0 (11) 8(A) , No pain 10:26:55 60 10 100 26.6 132/75(107) NSR 0 (11) 8(A) , No pain 10:31:03 60 10 100 28.8 127/86(100) NSR 0 (11) 8(A) , No pain 10:35:09 64 14 100 34.1 137/83(113) NSR 0 (11) 8(A) , No pain Medications Time Medication Route Dose Verified Delivered Reason Notes Effect iveness by by 8:27:42 Heparin Flush added 3 Chas Doherty used for Bag to bags Armando Roberts MD procedure (1000units/500ml field VARGAS NS) 8:27:53 Lidocaine 1% added 20ml Chas Doherty used for to vial Armando Roberts MD procedure field VARGAS 8:44:19 Versed I.V. 1 mg Chas Betancourt for Kai Roberts RN sedation 8:44:30 Fentanyl I.V. 50 Chas Asia for mcg Kai Roberts RN sedation 9:08:27 Versed I.V. 1 mg Chas Asia for Kai Roberts RN sedation 9:08:35 Fentanyl I.V. 50 Chas Asia for mcg Kai Roberts RN sedation 9:24:22 Heparin Bolus I.V. 5000 Chas Asia units Kai Roberts RN, MD Procedure Log Time Note 7:53:48 Yuri Finley RT (R) (CV) sent for patient. Start room use. 7:53:58 Time tracking: Regular hours (M-F 7:00 - 5:00) 7:54:03 Plan of Care:Hemodynamics will remain stable., Cardiac rhythm will remain stable., Comfort level will be maintained., Respiratory function will remain adequate., Patient/ family verbilizes understanding of procedure., Procedure tolerated without complication., Recovers from procedure without complications.. 7:54:10 Patient received from Outpatients to IR Alert and oriented. Tansferred to table in Supine position. 7:54:12 Correct patient and procedure confirmed by team. 7:54:13 Signed procedure consent form obtained from patient. 7:54:14 ECG and BP/O2 sat monitors applied to patient. 7:54:15 Full Disclosure recording started 7:54:16 - 7:54:19 Use device set IR Diagnostic 7:54:21 ACIST Syringe (89337) opened to sterile field. 7:54:22 ACIST Hand Control (02146) opened to sterile field. 7:54:22 ACIST Manifold (75814) opened to sterile field. 7:54:22 Bag Decanter () opened to sterile field. 7:54:23 Sterile Angiographic Pack opened to sterile field. 7:54:23 Tegaderm 4 x 4 (1626W) opened to sterile field. 7:54:30 H&P Date Dictated: 08/07/2018 H&P Addendum completed by physician on day of procedure. (MUST COMPLETE FOR ALL OUTPATIENTS). 7:54:31 Pre-procedure instructions explained to patient. 7:54:31 Pre-op teaching completed and patient verbalized understanding. 7:54:33 Family in waiting room. 7:54:34 Patient NPO since Midnight. 7:54:53 Patient allergic to No known allergies 7:54:58 Is the patient allergic to Iodine/contrast media? No. 7:54:59 Is patient on blood thinner?Yes 7:55:03 ACC The patient was administered the following blood thiners within the last 24 hours: ACCAspirin, ACCPlavix 7:55:05 Patient diabetic? No. 7:55:06 - 7:55:10 ----Pre-sedation anethsthesia assessment.---- 7:55:13 Previous problem with sedation/anesthesia? No ? 7:55:15 Snore? No 7:55:17 Sleep apnea? No 7:55:19 Deviated septum? No 7:55:20 Opens mouth fully? No 7:55:22 Sticks out tongue? No 7:55:23 Airway obstruction? No ? 7:55:26 Dentures? No ? 7:55:31 Pre procedure: right dorsailis pedis pulse 1+ Palpable, but thready & weak; easily obliterated 7:55:35 Pre procedure: left dorsailis pedis pulse Doppler 7:55:48 Pre procedure: right posterior tibial pulse Doppler 7:56:00 Pre procedure: left posterior tibial pulse Doppler 8:08:48 Patient pain scale 0/10 no pain. 8:08:57 IV patent on arrival in left forearm with 0.9% NaCl at [facility]. 8:09:02 Right groin area was prepped with chlora-prep and draped in sterile fashion 8:09:03 Alarms reviewed by R. N. 8:09:04 Sharps counted by scrub and verified by R.N. 8:09:09 Vital chart was started 8:09:10 Baseline sample Acquired. 8:09:16 Rhythm: sinus rhythm 8:27:42 Heparin Flush Bag (1000units/500ml NS) 3 bags added to field was administered by Chas Roberts MD; used for procedure; 8:27:53 Lidocaine 1% 20ml vial added to field was administered by Chas Roberts MD; used for procedure; 8:31:12 Baseline sample Acquired. 8:37:54 Physician arrived 8:37:55 --------ALL STOP TIME OUT------ 8:38:00 Final Timeout: patient, procedure, and site verified with staff and physician. All members of the team are in agreement. 8:38:05 Right groin site verified by team. 8:38:15 Sedation plan: IV Moderate Sedation Medication:Versed, Fentanyl 8:40:06 Procedure started. 8:40:18 Local anesthetic to right femoral artery with Lidocaine 1% by Chas Roberts MD.INITIAL ACCESS ONLY 8:40:23 Access obtained with 4Fr micropunture. 8:40:33 A 5 Fr sheath was inserted into the Right Femoral artery 8:40:39 DOC .035 wire (F39037) opened to sterile field. 8:40:39 TUBING Contrast Injection High Pressure (YDY698D) opened to sterile field. 8:40:39 SHEATH 5FR [place] (XLI444) opened to sterile field. 8:40:40 Micropuncture VSI 4FR kit opened to sterile field. 8:40:40 Angiodynamics Omniflush 5Fr 65cm (88986268) opened to sterile field. 8:40:41 ERNST 260 wire (A29367) opened to sterile field. 8:44:19 Versed 1 mg I.V. was administered by Asia Quinn RN; for sedation; 8:44:30 Fentanyl 50 mcg I.V. was administered by Asia Quinn RN; for sedation ; 8:53:24 GLIDE WIRE ANGLE 180cm (YX0989) opened to sterile field. 8:53:25 TORQUE DEVICE PLASTIC .038 ( TD01) opened to sterile field. 8:56:03 GLIDE CATHETER 5FR ANGLED 65cm (CG507) opened to sterile field. 8:56:14 NITINOL .018 80cm wire (X764008) opened to sterile field. 9:05:47 Cook ALEIDA 1 6FR. Guide sheath opened to sterile field. 9:05:55 Sheath upsized to a 6 Fr Mid-Length. 9:08:27 Versed 1 mg I.V. was administered by Asia Quinn RN; for sedation; 9:08:34 NITINOL .018 2cm 300cm wire (K432065) opened to sterile field. 9:08:35 Fentanyl 50 mcg I.V. was administered by Asia Quinn RN; for sedation ; 9:13:44 A Angiodynamics SOS OMNI 2 NON B 5FR 65CM catheter ([id number]) was advanced over the wire and used for Renal arteriography with flush -selective. 9:24:22 Heparin Bolus 5000 units I.V. was administered by Asia Quinn RN; ; 9:26:05 GLIDE CATHETER 5FR COBRA 65cm (CG502) opened to sterile field. 9:26:56 INFLATOR BasixTOUCH (GK0224) opened to sterile field. 9:40:41 Inflate balloon Inflation number: 1 A Evercross 3 x 2 x 135 Balloon ([id number]) was prepped and advanced across the Proximal Renal, Left, then inflated to 16 SEVERINO for 0:38 (min:sec). 9:55:42 Place stent Inflation Number: 2 A Loma Mini 5 x 18 Stent ([id number]) was prepped and advanced across the Proximal Renal, Left. The stent was deployed at 10 SEVERINO for 0:00 (min:sec). 10:22:42 Procedure ended.(Physican Out) 10::57 Fluoroscopy time 16.40 minutes. 10:23:06 Fluoroscopy dose: 1498 mGy 10:23:06 Flurop Dose total: 1498 10:23:12 Contrast amount:Isovue 300 135ml. 10:26:52 Post-op/insertion site Right Femoral artery dressed using a 4 x 4 and Tegaderm. 10:26:56 Post Procedure Pulses reassessed and unchanged 10:26:57 Post procedure instruction explained to patient.Patient verbalizes understanding. 10:26:58 Procedure and supply charges have been captured, reviewed, submitted an d are correct. 10:29:37 Sheath removed intact; hemostasis achieved with Manual Compression to the Right Femoral artery. 10:38:13 Report given to Outpatients. 10:38:16 Patient transfered to Outpatients with Stretcher. 10:38:46 Vital chart was stopped Intervention Summary Intervention Notes Time ActionType Lesion and Equipment Used Action# Pressure Duration Attributes 9:40:41 Inflate Proximal Evercross 3 x 2 1 16 00:38 balloon Renal, Left x 135 Balloon ([id number]) 9:55:42 [address] stent Proximal Loma Mini 2 10 00:00 Renal, Left 5 x 18 Stent ([id number]) Device Usage Item Name Manufacture Quantity Catalog Number Hospital Part Current Minimal Lot# / Charge Number Stock Stock Serial# Code ACIST Syringe Acist Medical 1 58201 721352 136460 237040 20 (30677) Systems Inc ACIST Hand Acist Medical 1 89725 031890 267774 650337 5 Control (20602) Systems Inc ACIST Manifold Acist Medical 1 75602 890189 664017 559583 5 (77199) Systems Inc Bag Decanter Microtek 1 2001S 796840 82909 708006 5 () Medical Inc. Sterile Cardinal 1 [id number] 058348 623970 5 Angiographic Health Pack Tegaderm 4 x 4 3M 1 1626W 598773 414318 078193 5 (1626W) DOC .035 wire Cook Medical 1 P68437 743924 552163 5 (O82386) TUBING Contrast [facility] Medical 1 WJJ130W 235230 465749 752995 5 [id number] Injection High Pressure (MSA547E) SHEATH 5FR Terumo 1 BIH525 790694 246618 708253 40 [place]rie (GIL151) Micropuncture VSI VASCULAR 1 7266V 354484 198739 5 VSI 4FR kit SOLUTIONS Angiodynamics Angiodynamics 1 10600875 059268 333009 563008 5 Omniflush 5Fr 65cm (42120162) ERNST 260 wire [facility] [employer] 1 S07514 534714 91832 506398 5 (U48154) GLIDE WIRE Terumo 1 FD2045 884534 964408 962941 5 ANGLE 180cm (OG5992) TORQUE DEVICE [place] 1 TD01 043047 252254 234260 5 PLASTIC .038 ( Scientific TD01) GLIDE CATHETER Terumo 1 CG507 624407 736442 5 5FR ANGLED 65cm (CG507) NITINOL .018 Medtronic 1 J038071 098093 619966 5 [id number] 80cm wire (H319378) Cook ALEIDA 1 Cook Medical 1 I04294 906648 891976 5 [id number] 6FR. Guide sheath NITINOL .018 Medtronic 1 R077610 881843 625536 5 2cm 300cm wire (N329775) Angiodynamics Angiodynamics 1 45237457 878828 43366 633137 5 SOS OMNI 2 NON B 5FR 65CM catheter (04478460) GLIDE CATHETER Terumo 1 CG502 026971 332185 5 5FR COBRA 65cm (CG502) INFLATOR [facility] Medical 1 DI2756 805677 553141 178014 5 BasixTOUCH (PN4164) Evercross 3 x 2 Medtronic 1 [id number] 299027 857270 987217 5 N778737 x 135 Balloon ([id number]) Loma Mini Medtronic 1 HWM6-2-83-80 112400 835247 315861 5 P439492 5 x 18 Stent (XXQ8-6-40-80) Signature Audit [place] Stage Time Signature Unsigned Intra-Procedure 08/07/2018 Yuri 10:38:40 AM Tushar RT (R) (CV) Signatures Monitor : Yuri Signature : Tushar RT Date : Time : [address] [place] [address]
[2018-08-07 06:27] LABS: EOSINOPHILS 3.8 % (0-7); HEMATOCRIT 42.3 % (36.0-48.0); LYMPHOCYTES 51.4 % (15-50); MCH 30.3 pg (26.0-34.0); MCHC 33.1 g/dL (31.0-37.0); MCV 91.6 fL (80.0-100.0); MEAN PLATELET VOLUME 10.3 fL (7.4-10.4); MONOCYTES 8.6 % (2-11); NEUTROPHILS 35.2 % (40-80); PLATELET COUNT 223 10x3/uL (130-400); RBC 4.62 10x6/uL (4.00-5.40); RDW 16.7 % (11.5-14.5); WBC 3.2 10x3/uL (4.8-10.8)
[2018-08-07 06:54] LABS: APTT 26.6 SECONDS (22.8-39.4); INR 0.94 (0.85-1.17); PROTIME 12.1 SECONDS (11.6-15.0)
[2018-08-07 07:17] LABS: CALC OSMOLALITY 277 mosm/kg (275-300); CALCIUM 8.7 mg/dL (8.5-10.1); CARBON DIOXIDE 28.3 mmol/L (21.0-32.0); CHLORIDE - SERUM 102 mmol/L (98-107); CREATININE - SERUM 0.8 mg/dL (0.6-1.3); POTASSIUM - SERUM 4.2 mmol/L (3.5-5.1); SODIUM 141 mmol/L (136-145); UREA NITROGEN 8 mg/dL (7-18); eGFR NON AFRICAN AMERICAN 80 mL/min (90-120)
[2018-08-07 07:27] VITALS: BP 99/60; Ht 165.1 cm; Wt 64.5 kg
[2018-08-07 07:45] LABS: GLUCOSE 88 mg/dL (74-106)
== END 2018-08-07 17:08 | disposition home or self-care (01) ==
LOC: D.SP 05:57 → D.RAD 08:00 → D.SP 17:08
PROVIDERS: General Practice
DX: I10 Essential (primary) hypertension (principal); I70.245 Atherosclerosis of native arteries of left leg with ulceration of other part of foot; I70.92 Chronic total occlusion of artery of the extremities; I70.1 Atherosclerosis of renal artery; Z01.812 Encounter for preprocedural laboratory examination

== ENCOUNTER 2018-09-13 11:36 | Emergency (ER) | payer MEDICARE ==
[~2018-09-13] VITALS: Ht 165.1 cm; Wt 63.6 kg
[2018-09-13 11:48] VITALS: Ht 165.1 cm; Wt 63.6 kg
[2018-09-13 12:35] LABS: HEMATOCRIT 36.6 % (36.0-48.0); HEMOGLOBIN 11.8 g/dL (12-16); MCH 27.3 pg (26.0-34.0); MCHC 32.2 g/dL (31.0-37.0); MCV 84.7 fL (80.0-100.0); MEAN PLATELET VOLUME 11.1 fL (7.4-10.4); NEUTROPHILS 86.5 % (40-80); PLATELET COUNT 133 10x3/uL (130-400); RBC 4.32 10x6/uL (4.00-5.40); RDW 16.1 % (11.5-14.5); WBC 8.1 10x3/uL (4.8-10.8)
[2018-09-13 12:40] LABS: ALBUMIN 3.4 g/dL (3.4-5.0); ALKALINE PHOSPHATASE 122 U/L (46-116); ALT (SGPT) 16 U/L (10-68); AMYLASE - SERUM 24 U/L (25-115); BILIRUBIN - TOTAL 0.23 mg/dL (0.2-1.3); CALC OSMOLALITY 277 mosm/kg (275-300); CALCIUM 8.7 mg/dL (8.5-10.1); CARBON DIOXIDE 23.9 mmol/L (21.0-32.0); CHLORIDE - SERUM 102 mmol/L (98-107); GLUCOSE 127 mg/dL (74-106); LIPASE 132 U/L (73-393); POTASSIUM - SERUM 3.9 mmol/L (3.5-5.1); PROTEIN - SERUM 8.1 g/dL (6.4-8.2); SODIUM 139 mmol/L (136-145); TROPONIN-I < 0.017 ng/mL (0.000-0.060); UREA NITROGEN 6 mg/dL (7-18); eGFR NON AFRICAN AMERICAN 62 mL/min (90-120)
[2018-09-13] MEDS ORDERED: MIRALAX17 GM PO (14:17)
[2018-09-13] MEDS ORDERED: ZOFRAN4 MG PO (14:17)
[2018-09-13 14:40] LABS: APPEARANCE CLEAR (CLEAR); COLOR STRAW (YELLOW); GLUCOSE NEGATIVE (NEGATIVE); KETONE NEGATIVE (NEGATIVE); NITRITE NEGATIVE (NEGATIVE); PROTEIN NEGATIVE (NEGATIVE)
[2018-09-13 14:41] LABS: BILIRUBIN NEGATIVE (NEGATIVE); UROBILINOGEN NORMAL (NORMAL)
[2018-09-13 15:17] VITALS: BP 136/74
== END 2018-09-13 15:17 | disposition home or self-care (01) ==
LOC: D.ER 11:36
PROVIDERS: Family Medicine
DX: R10.9 Unspecified abdominal pain (principal); K59.00 Constipation, unspecified

== ENCOUNTER 2019-03-04 11:05 | Day surgery (SDC) | payer MEDICARE ==
[~2019-03-04] VITALS: Ht 165.1 cm; Wt 61.4 kg
[~2019-03-04 11:05] MED LIST changes: +ZOFRAN4 MG PO
[2019-03-04 11:29] LABS: HEMATOCRIT 41.3 % (36.0-48.0); MCHC 33.9 g/dL (31.0-37.0); MCV 91.4 fL (80.0-100.0); MEAN PLATELET VOLUME 10.3 fL (7.4-10.4); PLATELET COUNT 167 10x3/uL (130-400); RBC 4.52 10x6/uL (4.00-5.40); RDW 14.4 % (11.5-14.5); WBC 3.3 10x3/uL (4.8-10.8)
[2019-03-04 11:44] LABS: CALC OSMOLALITY 279 mosm/kg (275-300); CALCIUM 9.1 mg/dL (8.5-10.1); CARBON DIOXIDE 29.1 mmol/L (21.0-32.0); CHLORIDE - SERUM 106 mmol/L (98-107); CREATININE - SERUM 0.8 mg/dL (0.6-1.3); GLUCOSE 81 mg/dL (74-106); POTASSIUM - SERUM 4.2 mmol/L (3.5-5.1); SODIUM 142 mmol/L (136-145); UREA NITROGEN 8 mg/dL (7-18); eGFR NON AFRICAN AMERICAN 80 mL/min (90-120)
[2019-03-04 12:10] VITALS: BP 119/74; Ht 165.1 cm; Wt 61.4 kg
[2019-03-04 13:16] LABS: EOSINOPHILS 2 % (0-7); LYMPHOCYTES 46 % (15-50); MONOCYTES 7 % (2-11); NEUTROPHILS 44 % (40-80); PLATELET ESTIMATE NORMAL
[2019-03-04 13:17] LABS: HYPOCHROMASIA OCC; ROULEAUX OCC
--- NOTE | 2019-03-04 14:26 | NUR ---
1425 RECIEVED A FULL LIQ TRAY
--- NOTE | 2019-03-04 16:35 | OP ---
PATIENT NAME: PATRICIA VARELA MEDICAL RECORD: [id number] :67 LOCATION:[facility] ADMISSION DATE: SURGEON: KIANA DIEGO DO DATE OF OPERATION: 03/04/2019 PROCEDURE: EGD with biopsies. INDICATION FOR PROCEDURE: Nausea, dysphagia, generalized abdominal pain. SCOPE: Olympus video gastroscope. MEDICATIONS: Propofol 80 mg IV per anesthesia. ESTIMATED BLOOD LOSS: Minimal. COMPLICATIONS: None. FINDINGS: Informed consent was given. The patient was made comfortable with the above medication. After reaching an adequate level of sedation by slow IV push, the patient was placed on her left side. The endoscope was advanced under direct visualization through the mouth to the second portion of the duodenum. The entire esophagus appeared normal. At the GE junction, there was evidence of LA class B reflux-induced esophagitis. Biopsies were taken randomly in the midesophagus to rule out the presence of eosinophilic esophagitis and from the GE junction to rule out Gallagher's. The endoscope was advanced beyond the GE junction into the stomach and retroflexed to view the cardia, where small sliding hiatal hernia was present. Throughout the entire stomach, there were patchy areas of erythema, granularity, and some congestion. Appearances were consistent with gastritis. Random cold forceps biopsies were taken to submit for histopathology and to rule out the presence of H. pylori. The endoscope was advanced beyond the pylorus into the duodenum, which appeared normal down to the second portion. Random cold forceps biopsies were taken to submit for histopathology. The endoscope was withdrawn from the patient. The patient tolerated the procedure well and there were no complications. IMPRESSION: 1. LA class B reflux-induced esophagitis. 2. Small sliding hiatal hernia. 3. Gastritis. PLAN AND RECOMMENDATIONS: 1. Discharge home when recovery parameters are met. 2. Follow up biopsy specimen results. 3. Continue current diet. 4. Continue present medications. 5. Omeprazole 40 mg times 60 days. 6. Consider imaging of gallbladder and gastric emptying scan if symptoms return. 7. Proceed with colonoscopy as scheduled. TRANSINT:[id number] Voice Confirmation ID: [id number] DOCUMENT ID: [id number] OPERATIVE REPORT [id number] PATRICIA VARELA KIANA DIEGO DO at 1633 CC: [id number] DICTATION DATE: 03/04/19 1356 PORTABLE PINCH RIVETER: 03/04/19 1615 [facility] 03/04/19 [place] [id number] [place] [id number]
== END 2019-03-04 14:53 | disposition home or self-care (01) ==
LOC: D.OPS 11:05
PROVIDERS: Anesthesiology; ATTEND Internal Medicine Gastroenterology
DX: K21.0 Gastro-esophageal reflux disease with esophagitis (principal); K44.9 Diaphragmatic hernia without obstruction or gangrene; K29.50 Unspecified chronic gastritis without bleeding; Z01.812 Encounter for preprocedural laboratory examination

== ENCOUNTER 2019-04-01 10:54 | Day surgery (SDC) | payer MEDICARE ==
[~2019-04-01] VITALS: Ht 165.1 cm; Wt 65.5 kg
[2019-04-01 11:30] LABS: HEMATOCRIT 44.5 % (36.0-48.0); HEMOGLOBIN 15.8 g/dL (12-16); MCH 32.1 pg (26.0-34.0); MCHC 35.5 g/dL (31.0-37.0); MCV 90.4 fL (80.0-100.0); MEAN PLATELET VOLUME 10.9 fL (7.4-10.4); RBC 4.92 10x6/uL (4.00-5.40); RDW 14.4 % (11.5-14.5); WBC 3.8 10x3/uL (4.8-10.8)
[2019-04-01 11:32] LABS: CALC OSMOLALITY 264 mosm/kg (275-300); CHLORIDE - SERUM 97 mmol/L (98-107); CREATININE - SERUM 0.8 mg/dL (0.6-1.3); GLUCOSE 71 mg/dL (74-106); POTASSIUM - SERUM 3.8 mmol/L (3.5-5.1); SODIUM 135 mmol/L (136-145); UREA NITROGEN 4 mg/dL (7-18); eGFR NON AFRICAN AMERICAN 80 mL/min (90-120)
[2019-04-01 11:38] LABS: INR 0.98 (0.85-1.17); PROTIME 12.5 SECONDS (11.6-15.0)
[2019-04-01 11:49] VITALS: Ht 165.1 cm; Wt 65.5 kg
--- NOTE | 2019-04-01 14:46 | NUR ---
DC INSTRUCTIONS GIVEN TO PT/FAMILY. STATE UNDERSTANDING. DC'D IV CATH FULLY INTACT
--- NOTE | 2019-04-01 15:03 | NUR ---
PT LEFT UNIT VIA WC AT 1500
--- NOTE | 2019-04-02 15:18 | OP ---
PATIENT NAME: PATRICIA VARELA MEDICAL RECORD: [id number] :67 LOCATION:[facility] ADMISSION DATE: SURGEON: KIANA DIEGO DO DATE OF OPERATION: 04/01/2019 PROCEDURE: Colonoscopy with polypectomy. INDICATION FOR PROCEDURE: Family history positive for colon cancer in the patient's father, hematochezia, chronic constipation as well as nausea, and abdominal pain. SCOPE: Olympus video pediatric colonoscope. MEDICATIONS: Propofol 560 mg IV per anesthesia. ESTIMATED BLOOD LOSS: Minimal. COMPLICATIONS: None. FINDINGS: Informed consent was given. The patient was made comfortable with the above medication. After reaching an adequate level of sedation by slow IV push, the patient was placed in the left side. A digital rectal examination was performed and revealed some external hemorrhoids. The endoscope was then advanced under direct visualization through the rectum to the cecum, confirmed by the presence of the appendiceal orifice and the ileocecal valve. The endoscope was withdrawn slowly and the mucosa was carefully examined. The prep quality was good. There were 4 polyps located in the cecum. Three were benign appearing, sessile, and ranged in size from 2-4 mm in diameter. These 3 were removed using a hot forceps in one piece and completely retrieved. The largest of the polyps measured approximately 1 cm in size. It was removed using endoscopic mucosal resection technique with a saline pillow injected underneath followed by hot snare polypectomy in one piece. There were 2 polyps located in the ascending colon, which were benign appearing, sessile, and ranged in size from 2-4 mm in diameter. They were removed using hot forceps in one piece and completely retrieved. In the sigmoid colon, there was a single benign-appearing sessile polyp, which measured approximately 3 mm in diameter. It was removed using hot forceps in one piece and completely retrieved. In the rectum, there was a single benign-appearing sessile polyp, which measured approximately 2-3 mm in diameter. It was removed using hot forceps in one piece and completely retrieved. There was evidence of mild diverticulosis involving distal descending and sigmoid colon. Retroflexion was performed in the rectum with visualization of grade II internal hemorrhoids without active bleeding. The endoscope was withdrawn from the patient. The patient tolerated the procedure well and there were no immediate complications. IMPRESSIONS: 1. Eight polyps as described above, removed using combination of hot forceps and hot snare utilizing EMR technique. 2. Mild diverticulosis of descending and sigmoid colon. 3. Internal and external hemorrhoids without active bleeding. PLAN AND RECOMMENDATIONS: 1. Discharge home when recovery parameters are met. 2. Follow up biopsy specimen results. 3. High-fiber diet. OPERATIVE REPORT [id number] PATRICIA VARELA 4. Continue current medications. 5. Reduce Linzess to 72 mcg daily. 6. Follow up at GI clinic in 1-2 months. TRANSINT:[id number] Voice Confirmation ID: [id number] DOCUMENT ID: [id number] KIANA DIEGO DO at 1518 CC: [id number] DICTATION DATE: 04/01/19 1425 COMBINE MECHANIC: 04/01/19 1454 [facility] 04/01/19 [place] [id number] [place] [address]
== END 2019-04-01 15:00 | disposition home or self-care (01) ==
LOC: D.OPS 10:54
PROVIDERS: Anesthesiology; ATTEND Internal Medicine Gastroenterology
DX: D12.2 Benign neoplasm of ascending colon (principal); D12.0 Benign neoplasm of cecum; D12.8 Benign neoplasm of rectum; K64.1 Second degree hemorrhoids; K64.4 Residual hemorrhoidal skin tags; K57.30 Diverticulosis of large intestine without perforation or abscess without bleeding; Z80.0 Family history of malignant neoplasm of digestive organs; K59.09 Other constipation; Z01.812 Encounter for preprocedural laboratory examination

== ENCOUNTER → 2019-04-11 08:21 | Outpatient (CLI) | payer MEDICARE ==
[2019-04-01 11:49] VITALS: BMI 24.0
== END | disposition home or self-care (01) ==
LOC: D.CT 08:21
PROVIDERS: ATTEND General Practice
DX: I70.1 Atherosclerosis of renal artery (principal)

== ENCOUNTER → 2019-04-29 08:42 | Outpatient (CLI) | payer MEDICARE ==
[~2019-04-29] VITALS: Ht 165.1 cm; Wt 58.6 kg
--- NOTE | ~2019-04-29 | HEMODYNAMI ---
PATIENT:PATRICIA VARELA MEDICAL RECORD: [id number] : 67 LOCATION:CAN ADMISSION DATE: 04/29/19 Generatedon:04/29/201912:06 Patient name: PATRICIA VARELA Patient #: [id number] SSN: : 1965 Date of study: 04/29/2019 Page: Of Hemodynamic Procedure Report Patient Data Patient Demographics Procedure consent was obtained First Name: PATRICIA Gender: Female Last Name: NICHOLE : 1965 [facility] Initial: JUS Age: 53 year(s) Patient #: [id number] Race: Unknown Additional ID: [id number] Contact details [address]: [address] [place] [address] State: [place] City: [place] Zip code: [address] Past Medical History Allergies: No known allergies Admission Admission Data Admission Date: 04/29/2019 Admission Time: 8:42 Procedure Procedure Types Cath Procedure Peripheral Cath Diagnostic Procedure [place] Instructor Peripheral Procedures Renal Arteriogram Procedure Description Procedure Date Procedure Date: 04/29/2019 Procedure Start Time: 11:08 Procedure End Time: 12:05 Procedure Staff Name Function Chas Roberts MD Performing Physician YEIMI EASON RT Monitor Didi Beavers RN Nurse Asia Quinn RN Nurse Yuri Finley RT Scrub Procedure Data Cath Procedure Fluoroscopy Diagnostic fluoroscopy Total fluoroscopy Time: time: 13.5 min 13.5 min Contrast Material Contrast Material Type Amount (ml) Isovue 300 75 Entry Location Entry Primary Successful Side Size Upsize Upsize Entry Closure Succes sful Closure Location (Fr) 1 (Fr) 2 (Fr) Remarks Device Remarks Femoral Right 5 Fr 6 Fr 6 Fr Exoseal artery Long Short Procedure Medications Medication Administration Route Dosage Heparin Flush Bag added to field 3 bags (1000units/500ml NS) Lidocaine 1% added to field 20 Benadryl I.V. 25 mg Fentanyl I.V. 50 mcg Versed I.V. 1 mg Versed I.V. 1 mg Fentanyl I.V. 50 mcg Fentanyl I.V. 25 mcg Versed I.V. 1 mg Versed I.V. 0.5 mg Fentanyl I.V. 50 mcg Versed I.V. 0.5 mg Benadryl I.V. 25 mg Heparin Bolus 4000 units Versed I.V. 1 mg Fentanyl I.V. 50 mcg Fentanyl I.V. 50 mcg Versed I.V. 1 mg Hemodynamics Rest Pre Cath Intra NCS Post Cath Vital Signs Time Heart Resp SPO2 etCO2 NIBP (mmHg) Rhythm Pain Sedation Rate (ipm) (%) (mmHg) Status Level (bpm) 11:04:32 55 22 100 36.5 105/71(85) NSR 0 (11) 10(A) , No pain 11:07:00 54 22 98 37.3 106/66(77) NSR 0 (11) 8(A) , No pain 11:14:16 53 17 41.1 104/66(81) NSR 0 (11) 8(A) , No pain 11:24:04 64 14 99 21.6 86/69(78) NSR 0 (11) 8(A) , No pain 11:26:07 54 51 100 35.1 116/66(92) NSR 0 (11) 8(A) , No pain 11:32:13 53 52 99 36.6 111/73(87) NSR 0 (11) 8(A) , No pain 11:40:15 54 55 99 41.8 125/73(104) NSR 0 (11) 8(A) , No pain 11:41:24 55 16 99 38.1 119/70(99) NSR 0 (11) 8(A) , No pain 11:45:28 53 18 99 35.1 119/73(88) NSR 0 (11) 8(A) , No pain 11:49:30 57 9 95 0 132/78(100) NSR 0 (11) 8(A) , No pain 11:53:31 62 22 100 8.9 143/87(110) NSR 0 (11) 8(A) , No pain 11:58:30 59 16 31.3 Measuring NSR 0 (11) 8(A) , No pain 11:58:47 57 14 100 41.8 123/84(105) NSR 0 (11) 8(A) , No pain 12:02:49 54 16 98 32.8 140/87(118) NSR 0 (11) 8(A) , No pain Medications Time Medication Route Dose Verified Delivered Reason Notes Effec tiveness by by 11:03:41 Heparin Flush added 3bags Chas Doherty used for Bag to Armando Roberts MD procedure (1000units/500ml field VARGAS NS) 11:03:56 Lidocaine 1% added 20ml Chas Doherty used for to vial Armando Roberts MD procedure field VARGAS 11:04:51 Benadryl I.V. 25 mg Chas Didi for BurdLadonna augustiner RN sedation 11:05:03 Fentanyl I.V. 50 Chas Didi for mcg KaterinaaLadonnaer RN sedation 11:05:15 Versed I.V. 1 mg Chas Didi for BurdaLadonnaer RN sedation 11:07:57 Versed I.V. 1 mg Chas Didi for BurdaLadonnaer RN sedation 11:09:55 Fentanyl I.V. 50 Chas Didi for mcg KaterinaaLadonnaer RN sedation 11:13:46 Fentanyl I.V. 25 Chas Didi for mcg BurdaLadonnaer RN sedation 11:13:54 Versed I.V. 1 mg Chas Didi for BurdaLadonnaer RN sedation 11:21:41 Versed I.V. 0.5 Chas Didi for mg Burda, Beavers RN sedation 11:28:06 Fentanyl I.V. 50 Hcas Didi for mcg BurdaLadonnaer RN sedation 11:28:14 Versed I.V. 0.5 Chas Didi for mg BurdaLadonnaer RN sedation 11:30:33 Benadryl I.V. 25 mg Chas Didi for Burda, Beavers RN sedation 11:40:55 Heparin Bolus 4000 Chas Didi used for units KaterinaaNimesh automotive finance manager 11:43:42 Versed I.V. 1 mg Chas Didi for BurdaLadonnaer RN sedation 11:43:51 Fentanyl I.V. 50 Chas Didi for mcg KaterinaaLadonnaer RN sedation 11:54:42 Fentanyl I.V. 50 Chas Didi for mcg KaterinaaLadonnaer RN sedation 11:54:50 Versed I.V. 1 mg Chas Didi for Burda, Beavers RN sedation Procedure Log Time Note 10:41:43 Didi Beavers RN sent for patient. Start room use. 10:41:45 Time tracking: Regular hours (M-F 7:00 - 5:00) 10:41:49 Plan of Care:Hemodynamics will remain stable., Cardiac rhythm will remain stable., Comfort level will be maintained., Respiratory function will remain adequate., Patient/ family verbilizes understanding of procedure., Procedure tolerated without complication., Recovers from procedure without complications.. 10:42:01 Patient received from Outpatients to IR Alert and oriented. Tansferred to table in Supine position. 10:42:04 Signed procedure consent form obtained from patient. 10:42:06 Correct patient and procedure confirmed by team. 10:42:08 ECG and BP/O2 sat monitors applied to patient. 10:42:10 - 10:42:17 H&P Date Dictated: 04/29/2019 H&P Addendum completed by physician on day of procedure. (MUST COMPLETE FOR ALL OUTPATIENTS). 10:42:35 Pre-procedure instructions explained to patient. 10:42:36 Pre-op teaching completed and patient verbalized understanding. 10:42:41 Patient NPO since Midnight. 10:48:40 Patient allergic to No known allergies 10:48:43 Is the patient allergic to Iodine/contrast media? No. 10:48:44 Is patient on blood thinner?Yes 10:48:54 ACC The patient was administered the following blood thiners within the last 24 hours: ACCAspirin, ACCPlavix 10:49:21 Patient diabetic? No. 10:49:23 - 10:49:25 ----Pre-sedation anethsthesia assessment.---- 10:49:29 Previous problem with sedation/anesthesia? No ? 10:49:31 Snore? No 10:49:32 Sleep apnea? No 10:49:33 Deviated septum? No 10:49:34 Opens mouth fully? Yes 10:49:35 Sticks out tongue? Yes 10:49:43 Dentures? No ? 10:49:46 - 10:51:01 IV patent on arrival in left hand with 0.45%NaCl at O. 10:52:31 Pre procedure: right dorsailis pedis pulse Doppler 10:52:34 Pre procedure: right posterior tibial pulse Doppler 10:53:19 Right groin area was prepped with chlora-prep and draped in sterile fashion 10:53:20 Alarms reviewed by R. N. 10:53:21 Sharps counted by scrub and verified by R.N. 11:01:00 Physician arrived 11:01:06 Use device set IR Diagnostic 11:01:09 Tegaderm 4 x 4 (1626W) opened to sterile field. 11:01:10 Sterile Angiographic Pack opened to sterile field. 11:01:11 Bag Decanter () opened to sterile field. 11:01:11 ACIST Manifold (27723) opened to sterile field. 11:01:12 ACIST Hand Control (64491) opened to sterile field. 11:01:12 ACIST Syringe (38864) opened to sterile field. 11:01:57 Angiodynamics Omniflush 5Fr 65cm ([id number]) opened to sterile field. 11:01:58 SHEATH 5FR Anderson (QNW524) opened to sterile field. 11:01:58 MICROPUNCTURE 4FR Cook (P65281) opened to sterile field. 11:01:59 DOC Extension wire (86168) opened to sterile field. 11:02:02 - 11:02:06 --------ALL STOP TIME OUT------ 11:02:07 Final Timeout: patient, procedure, and site verified with staff and physician. All members of the team are in agreement. 11:02:10 Right groin site verified by team. 11:02:12 Fire Safety Assessment: A--An alcohol-based skin anteseptic being used preoperatively., C--Open oxygen or nitrous oxide is being used. 11:02:18 2) 60-89 Mildly reduced kidney function, and other findings (as for stage 1) point to kidney disease. 11:03:41 Heparin Flush Bag (1000units/500ml NS) 3bags added to field was administered by Chas Roberts MD; used for procedure; 11:03:56 Lidocaine 1% 20ml vial added to field was administered by Chas Roberts MD; used for procedure; 11:04:51 Benadryl 25 mg I.V. was administered by Didi Beavers RN; for sedation; 11:05:03 Fentanyl 50 mcg I.V. was administered by Didi Beavers RN; for sedation; 11:05:15 Versed 1 mg I.V. was administered by Didi Beavers RN; for sedation; 11:06:20 Procedure started. 11:06:20 Full Disclosure recording started 11:07:57 Versed 1 mg I.V. was administered by Didi Beavers RN; for sedation; 11:08:21 Local anesthetic to right femoral artery with Lidocaine 1% by Chas Roberts MD.INITIAL ACCESS ONLY 11:09:55 Fentanyl 50 mcg I.V. was administered by Didi Beavers RN; for sedation; 11:10:05 Access obtained with 4Fr micropunture. 11:13:46 Fentanyl 25 mcg I.V. was administered by Didi Beavers RN; for sedation; 11:13:54 Versed 1 mg I.V. was administered by Didi Beavers RN; for sedation; 11:14:04 NITINOL .018 80cm wire ([id number]) opened to sterile field. 11:21:39 A 5 Fr sheath was inserted into the Right Femoral artery 11:21:41 Versed 0.5 mg I.V. was administered by Didi Beavers RN; for sedation; 11:27:19 TORQUE DEVICE PLASTIC .038 ( TD01) opened to sterile field. 11:27:20 GLIDE WIRE ANGLE 180cm (OG0079) opened to sterile field. 11:27:20 GLIDE CATHETER 5FR COBRA 65cm (CG502) opened to sterile field. 11:28:06 Fentanyl 50 mcg I.V. was administered by Didi Beavers RN; for sedation; 11:28:14 Versed 0.5 mg I.V. was administered by Didi Beavers RN; for sedation; 11:30:33 Benadryl 25 mg I.V. was administered by Didi Beavers RN; for sedation; 11:32:34 Cook ALEIDA 1 6FR. Guide sheath opened to sterile field. 11:33:58 Sheath upsized to a 6 Fr Long. 11:40:30 Vital chart was started 11:40:55 Heparin Bolus 4000 units was administered by Didi Beavers RN; used for procedure; 11:42:30 AMPLATZ Super stiff Straight 260cm wire ([id number]) opened to sterile field. 11:43:42 Versed 1 mg I.V. was administered by Didi Beavers RN; for sedation; 11:43:51 Fentanyl 50 mcg I.V. was administered by Didi Beavers RN; for sedation; 11:45:46 ERNST 260 wire (O66336) opened to sterile field. 11:49:06 Inflate balloon Inflation number: 1 A Evercross 5 x 20 x 135 Balloon ([id number]) was prepped and advanced across the Undefined1 , then inflated. 11:52:16 SHEATH 6FR Anderson (ZZJ388) opened to sterile field. 11:54:42 Fentanyl 50 mcg I.V. was administered by Didi Beavers RN; for sedation; 11:54:50 Versed 1 mg I.V. was administered by Didi Beavers RN; for sedation; 11:55:09 EXOSEAL 6Fr (EX600) opened to sterile field. 11:55:10 Sheath upsized to a 6 Fr Short. 11:55:10 Sheath removed intact; hemostasis achieved with Exoseal to the Right Femoral artery. 11:56:24 Procedure ended.(Physican Out) 11:57:04 Fluoroscopy time 13.50 minutes. 11:57:08 Dose Area Product 549 mGy/cm. 11:57:14 Insertion/operative site no bleeding no hematoma. 11:57:21 Post right femoral artery:stable, clean and dry 11:57:33 Contrast amount:Isovue 300 75ml. 11:57:43 Post procedure instruction explained to patient.Patient verbalizes understanding. 11:57:48 Post procedure: right dorsailis pedis pulse Doppler. 11:57:51 Post procedure: right posterior tibial pulse Doppler. 11:57:56 Procedure and supply charges have been captured, reviewed, submitted an d are correct. 12:05:47 Vital chart was stopped 12:05:48 See physician's report for complete and final results. 12:05:50 Report given to Outpatients. 12:05:54 Patient transfered to Outpatients with Stretcher. 12:05:57 Procedure ended. 12:05:57 Full Disclosure recording stopped 12:06:00 End room use (Document Last) Intervention Summary Intervention Notes Time ActionType Lesion and Equipment Used Action# Pressure Duration Attributes 11:49:06 Inflate Undefined1 Evercross 5 x 2 1 0 00:00 balloon x 135 Balloon ([id number]) Device Usage Item Name Manufacture Quantity Catalog Number Hospital Part Current Minimal Lot# / Charge Number Stock Stock Serial# Code Tegaderm 4 x 4 3M 1 1626W [id number] [id number] [id number] 5 (1626W) Sterile Cardinal 1 [id number] 865828 701017 5 Angiographic Health Pack Bag Decanter Microtek 1 226478 38390 889368 5 () Medical Inc. ACIST Manifold Acist Medical 1 74789 612163 112645 336190 5 (64229) Systems Inc ACIST Hand Acist Medical 1 34049 825224 705738 398388 5 Control (56039) Systems Inc ACIST Syringe Acist Medical 1 73857 339062 636137 846821 20 (91587) Systems Inc Angiodynamics Angiodynamics 1 [id number] 028539 768364 471925 5 Omniflush 5Fr 65cm (64685388) SHEATH 5FR Terumo 1 UAR300 313353 332263 927127 5 Anderson (BTS610) MICROPUNCTURE Cook Medical 1 Q82140 021280 200230 842249 5 4FR Cook (Y99088) DOC Extension Roy 1 47121 527688 180911 490420 5 wire (06473) Vascular NITINOL .018 Medtronic 1 V336205 223623 380527 5 2cm 300cm wire (L459624) NITINOL .018 Medtronic 1 Q510475 541039 463004 5 80cm wire (F377341) TORQUE DEVICE Charleston 1 TD01 510412 392122 223464 5 PLASTIC .038 ( Scientific TD01) GLIDE WIRE Terumo 1 UF1818 967302 418319 099577 5 ANGLE 180cm (IT4851) GLIDE CATHETER Terumo 1 CG502 241912 593325 5 5FR COBRA 65cm (CG502) Cook ALEIDA 1 Cook Medical 1 Y11746 897397 554436 5 [id number] 6FR. Guide sheath AMPLATZ Super [place] 1 [id number] 935128 30661 338308 5 [id number] stiff Straight Scientific 260cm wire ([id number]) ERNST 260 wire Cook Medical 1 B34041 183251 87858 252370 5 4990149 (A59423) Evercross 5 x 2 Medtronic 1 [id number] 575656 902778 438485 5 x 135 Balloon ([id number]) SHEATH 6FR Terumo 1 BHV047 717128 640369 211131 40 Anderson (CRG807) EXOSEAL 6Fr Cardinal 1 EX600 853921 445549 647587 10 (EX600) Health Signature Audit Fields Stage Time Signature Unsigned Intra-Procedure 04/29/2019 YEIMI EASON RT 12:06:15 PM (R) Signatures Monitor : YEIMI EASON RT Signature : Date : Time : [address] [place] [address]
[2019-04-29 08:57] LABS: BASOPHILS 0.9 % (0-2); EOSINOPHILS 1.4 % (0-7); HEMATOCRIT 42.7 % (36.0-48.0); IMMATURE GRANULOCYTES 0.2 % (0-5); LYMPHOCYTES 43.5 % (15-50); MCH 31.3 pg (26.0-34.0); MCHC 35.1 g/dL (31.0-37.0); MEAN PLATELET VOLUME 10.6 fL (7.4-10.4); MONOCYTES 6.5 % (2-11); NEUTROPHILS 47.5 % (40-80); PLATELET COUNT 203 10x3/uL (130-400); RDW 14.2 % (11.5-14.5); WBC 4.3 10x3/uL (4.8-10.8)
[2019-04-29 09:04] LABS: ANION GAP 9.6 mmol/L (8-16); CARBON DIOXIDE 32.4 mmol/L (21.0-32.0); CREATININE - SERUM 0.9 mg/dL (0.6-1.3)
[2019-04-29 09:17] LABS: INR 0.94 (0.85-1.17); PROTIME 12.1 SECONDS (11.6-15.0)
[2019-04-29 09:18] LABS: APTT 24.7 SECONDS (22.8-39.4)
[2019-04-29 10:29] VITALS: BP 115/68; Ht 165.1 cm; Wt 58.6 kg
--- NOTE | 2019-04-29 12:29 | NUR ---
1210 SEE POST PROCEDURE CHECKLIST FOR VITAL SIGN TRENDS
== END | disposition home or self-care (01) ==
LOC: D.OPS 08:42 → D.SP 13:00 → D.RAD 13:00
PROVIDERS: ATTEND General Practice
DX: I70.1 Atherosclerosis of renal artery (principal); Z01.812 Encounter for preprocedural laboratory examination; I10 Essential (primary) hypertension

== ENCOUNTER → 2019-06-05 10:04 | Outpatient (CLI) | payer MEDICARE ==
[2019-04-29 10:29] VITALS: BMI 21.5
== END | disposition home or self-care (01) ==
LOC: D.HCCECHO 10:04
PROVIDERS: ATTEND Internal Medicine Interventional Cardiology
DX: I10 Essential (primary) hypertension (principal)

== ENCOUNTER → 2019-06-20 12:31 | Outpatient (CLI) | payer MEDICARE ==
[2019-04-29 10:29] VITALS: BMI 21.5
--- NOTE | 2019-06-24 13:56 | EC ---
PATIENT:PATRICIA VARELA DATE OF SERVICE: 06/20/19 SEX: F MEDICAL RECORD: [id number] DATE OF : 67 LOCATION:[facility] AGE OF PATIENT: 53 ADMISSION DATE: 06/20/19 REFERRING PHYSICIAN: INTERPRETING PHYSICIAN: ARVIN BROOKS MD ECHOCARDIOGRAM REPORT ECHO CHARGES 4 ECHO COMPLETE Date: 06/20/19 CLINICAL DIAGNOSIS: MURMUR H/O HTN/CVA/PVD ECHOCARDIOGRAPHIC MEASUREMENTS (adult normal given) AC root (d.<3.7cm) 3.3 cm LV Septum d (<1.2 cm> 1.0 cm Valve Excursion 2.0 cm LV Septum (systole) 1.5 cm Left Atria (s.<4.0cm> 3.6 cm LVPW d(<1.2cm) 1.1 cm RV (d.<2.3cm) 2.3 cm LVPW (sytole) 1.8 cm LV diastole(<5.6CM) 4.8 cm MV E-F(>70mm/sec) cm LV systole 2.6 cm LVOT Diameter 1.9 cm MV exc.(>10mm) cm Est.ejection fraction (50-75%) % DOPPLER: LVIT cm/sec A 72.0 cm/sec E 48.0 cm/sec LA cm/sec RVSP 32.1 mmHg LVOT 82.0 cm/sec AOP1/2T m/s Asc. Ao 106 cm/sec RVOT 63.0 cm/sec RA cm/sec PA 77.0 cm/sec AV Gradient Peak 4.5 mmHg AV Mean 2.5 mmHg AV Area 2.3 cm MV Gradient Peak 2.7 mmHg MV Mean 0.79 mmHg MV Area cm COMMENTS: OP - [facility] Research Center Director: 1 KYA YOOOE Architectural Practice Manager: 3 Dr. Martin TAPE# PACS Pericardial Effusion N DATE OF SERVICE: Adequate 2D, color flow, spectral Doppler, and M-mode. No LVH. LV internal dimension is normal. Wall motion is normal. EF is greater than or equal to 55%. Aortic valve is tricuspid. No evidence of stenosis by Doppler interrogation. Left atrium normal at 3.6 cm. Mitral valve shows no prolapse. Trace MR. Right-sided chambers are grossly normal. Mild TR. TRANSINT:[id number] Voice Confirmation ID: [id number] DOCUMENT ID: [id number] ECHOCARDIOGRAM REPORT [id number] PATRICIA VARELA,ARVIN Escobar MD at 1356 CC: [id number] DICTATION DATE: 06/21/19 1215 CAN SEALER: 06/21/19 1234 DEP CLI 06/20/19 [place] [id number] [place] [id number]
== END | disposition home or self-care (01) ==
LOC: D.HCCECHO 12:31
PROVIDERS: ATTEND Internal Medicine Interventional Cardiology
DX: I10 Essential (primary) hypertension (principal)

== ENCOUNTER → 2019-07-02 12:21 | Outpatient (CLI) | payer MEDICARE ==
[2019-04-29 10:29] VITALS: BMI 21.5
== END | disposition home or self-care (01) ==
LOC: D.CT 12:21
PROVIDERS: ATTEND Radiology Diagnostic Radiology
DX: I70.1 Atherosclerosis of renal artery (principal); I10 Essential (primary) hypertension; Z96.89 Presence of other specified functional implants

== ENCOUNTER → 2020-05-19 13:55 | Outpatient (CLI) | payer MEDICARE ==
[2019-04-29 10:29] VITALS: BMI 21.5
== END | disposition home or self-care (01) ==
LOC: D.US 13:55
PROVIDERS: ATTEND Internal Medicine Cardiovascular Disease
DX: I70.203 Unspecified atherosclerosis of native arteries of extremities, bilateral legs (principal)

== ENCOUNTER → 2020-06-01 08:32 | Outpatient (CLI) | payer MEDICARE ==
[2019-04-29 10:29] VITALS: BMI 21.5
== END | disposition home or self-care (01) ==
LOC: D.CT 05-25 09:00
PROVIDERS: ATTEND Internal Medicine Cardiovascular Disease
DX: I70.90 Unspecified atherosclerosis (principal)

== ENCOUNTER 2020-06-18 13:06 | Emergency (ER) | payer MEDICARE ==
[~2020-06-18] VITALS: Ht 165.1 cm; Wt 66.4 kg
[2020-06-18 13:47] VITALS: Ht 165.1 cm; Wt 66.4 kg
[2020-06-18 15:08] LABS: BASOPHILS 0.5 % (0-2); EOSINOPHILS 0.5 % (0-7); HEMATOCRIT 44.9 % (36.0-48.0); HEMOGLOBIN 14.3 g/dL (12-16); IMMATURE GRANULOCYTES 0.2 % (0-5); LYMPHOCYTES 20.6 % (15-50); MCHC 31.8 g/dL (31.0-37.0); MCV 81.6 fL (80.0-100.0); MEAN PLATELET VOLUME 9.7 fL (7.4-10.4); MONOCYTES 5.2 % (2-11); RDW 18.5 % (11.5-14.5); WBC 5.8 10x3/uL (4.8-10.8)
[2020-06-18 15:09] LABS: PLATELET COUNT 271 10x3/uL (130-400)
[2020-06-18 15:09] LABS: BILIRUBIN NEGATIVE (NEGATIVE); KETONE NEGATIVE (NEGATIVE); NITRITE NEGATIVE (NEGATIVE); UROBILINOGEN NORMAL mg/dL (< 2)
[2020-06-18 15:17] LABS: CALC OSMOLALITY 279 mosm/kg (275-300); CARBON DIOXIDE 28.2 mmol/L (21.0-32.0); CHLORIDE - SERUM 100 mmol/L (98-107); CREATININE - SERUM 0.9 mg/dL (0.6-1.3); GLUCOSE 102 mg/dL (74-106); POTASSIUM - SERUM 3.2 mmol/L (3.5-5.1); SODIUM 141 mmol/L (136-145); UREA NITROGEN 10 mg/dL (7-18); eGFR NON AFRICAN AMERICAN 69 mL/min (90-120)
[2020-06-18 15:25] LABS: ALBUMIN 3.8 g/dL (3.4-5.0); ALKALINE PHOSPHATASE 143 U/L (30-120); ALT (SGPT) 11 U/L (10-68); AMYLASE - SERUM 31 U/L (25-115); BILIRUBIN - TOTAL 0.28 mg/dL (0.2-1.3); LIPASE 129 U/L (73-393); PROTEIN - SERUM 8.5 g/dL (6.4-8.2)
[2020-06-18 15:26] LABS: TROPONIN-I < 0.017 ng/mL (0.000-0.060)
[2020-06-18] MEDS ORDERED: CHRONULAC30 ML PO (17:28)
== END 2020-06-18 18:00 | disposition home or self-care (01) ==
LOC: D.ER 13:06
PROVIDERS: Emergency Medicine
DX: K59.00 Constipation, unspecified (principal); R10.9 Unspecified abdominal pain; I10 Essential (primary) hypertension; I25.10 Atherosclerotic heart disease of native coronary artery without angina pectoris; Z95.5 Presence of coronary angioplasty implant and graft; K21.9 Gastro-esophageal reflux disease without esophagitis